=== PATIENT | male | born 1930 | race Caucasian/White ===

== ENCOUNTER 2016-09-23 10:24 | Inpatient (IN) | payer MEDICARE ==
[~2016-09-23] VITALS: Ht 172.7 cm; Wt 70.1 kg
[~2016-09-23 10:24] MED LIST: /TAMS4CA; /TAMS4CA GT; /TAMS4CA PO; ACET50TA PO; ALBU0.084 IN; ALBU0.084 INH; ALBU83IN; ALBUTEROL INH; ALEV220T26 AD; ASMANEX; ASPI81TA51 PO; ATROVENT; BABY81CH; COMBIN INH; DIFL200T; DOXY150C PO; DOXY75CA3 PO; HYPROMELLOSE OU; IPRA2IN INH; KLOR20TA PO; LASI40TA; LASI40TA PO; LEVO25TA4 PO; LEVOTHYROXINE PO; LISI5TAB; MAALOX PO; MICR10CA PO; MUCI600T34 PO; NEOM1SOL AD; PRED10PA PO; PRED10TA2 PO; PRED20TA PO; PRED50TA2 PO; PRED5TAB; PRED5TAB PO; PREDPOW10; PROV90AE; SENN8.6T63 PO; SENO8.6T9 PO; SIMV20TA2 PO; SIMV40TA2; SIMV40TA2 PO; SULF400T PO; TYLE325T5 PO; XOPE1.252; ZANT150T PO; ZOCO20TA PO; ZOCO40TA PO; maalox PO; ventolin INH
[2016-09-23 11:33] LABS: BASO # 0.1 K/mm3 (0.0-0.2); BASO % 0.6 % (0.0-1.0); EOS # 0.1 K/mm3 (0.0-0.50); EOS % 0.4 % (0.0-3.0); LARGE UNSTAINED CELL # 0.1 K/mm3 (0.0-0.4); LARGE UNSTAINED CELL % 0.5 % (0.0-4.0); LYMPH # 0.4 K/mm3 (1.5-4.5); MEAN CORPUSCULAR HEMOGLOBIN 31.7 pg (27.0-33.0); MEAN CORPUSCULAR HGB CONC 33.4 g/dl (32.0-36.5); MEAN CORPUSCULAR VOLUME 94.8 fl (80.0-96.0); MONO # 0.6 K/mm3 (0.0-0.8); MONO % 3.7 % (0.0-5.0); NEUTROPHILS # 15.3 K/mm3 (1.8-7.7); NEUTROPHILS % 92.7 % (36.0-66.0); PLATELET COUNT, AUTOMATED 148 k/mm3 (150-450); RED CELL DISTRIBUTION WIDTH 14.5 % (11.5-14.5); WHITE BLOOD COUNT 16.6 K/mm3 (4.0-10.0)
[2016-09-23 11:53] LABS: CALCIUM LEVEL 9.7 MG/DL (8.8-10.2); CREATININE FOR GFR 1.37 MG/DL (0.70-1.30); GLOMERULAR FILTRATION RATE 52.7 (>35); POTASSIUM SERUM 3.8 MEQ/L (3.5-5.1)
--- NOTE | 2016-09-23 11:55 | REP ---
CHEST, TWO VIEWS: HISTORY: Shortness of breath. COMPARISON: 04/09/2014. The lungs are hyperinflated. An increase in interstitial markings is present in the lungs consistent with chronic interstitial fibrosis. Linear densities are present in the left lower lobe consistent with atelectasis or scar. The heart is normal in size. The pulmonary vasculature is normal in appearance. The bony structure is intact. IMPRESSION: 1. Chronic interstitial fibrosis. 2. Left lower lobe atelectasis or scar. Signed by Ozzy Farley MD 09/23/2016 12:01 P
[2016-09-23] MEDS ORDERED: ACETAMINOPHEN 325 MG TAB As Ordered ONE (11:59)
[2016-09-23] MEDS ORDERED: methylPREDNISolone INJ 125 MG/2 ML VIAL (J2930) As Ordered ONE (11:59)
[2016-09-23] MEDS ORDERED: IPRATROPIUM 0.5MG/ALBUTEROL 2.5MG INH SOL UD 3ML (DUONEB)(J7620) As Ordered ONE (12:14)
[2016-09-23 12:40] LABS: ABG BASE EXCESS 0.8 (-2.0-2.0); ABG DEVICE NASAL CANN; ABG HCO3 24.3 MEQ/L (22.0-26.0); ABG STANDARD HCO3 25.2 MEQ/L (22.0-26.0); ABG TOTAL CO2 25.5 MEQ/L (23.0-31.0); ABG pH (ARTERIAL) 7.448 UNITS (7.350-7.450)
[2016-09-23] MEDS ORDERED: AZITHROMYCIN 500 MG, VIAL MATE ADAPTER 1 EACH in D5W 250 ML IV SCH (13:00)
[2016-09-23] MEDS ORDERED: AZITHROMYCIN INJ 500MG VIAL (J0456) As Ordered ONE (13:17)
[2016-09-23] MEDS ORDERED: cefTRIAXone SOD 1 GM VIAL (J0696) As Ordered ONE (13:17)
--- NOTE | 2016-09-23 13:22 | REP ---
Clinical: COPD and dyspnea. Findings: Diffuse moderate COPD and emphysematous changes are appreciated along with basilar bronchiectasis. Superimposed subtle acute left lower lobe alveolar infiltrate and trace right basilar atelectasis noted. No pleural effusion. No pneumothorax. No obvious significant adenopathy. Atherosclerotic changes to the thoracic aorta and coronary arteries noted without cardiomegaly or pericardial effusion. Musculoskeletal structures demonstrate age-related degenerative changes. Impression: Moderate COPD with early acute left lower lobe alveolar infiltrate and trace right basilar atelectasis. Signed by Ede Boykin MD 09/23/2016 01:14 P
[2016-09-23] MEDS ORDERED: IPRATROPIUM 0.5MG/ALBUTEROL 2.5MG INH SOL UD 3ML (DUONEB)(J7620) NEB PRN (13:30)
[2016-09-23] MEDS ORDERED: cefTRIAXone SOD 2 GM in D5W MINI-BAG PLUS 50 ML IV SCH (13:30)
[2016-09-23] MEDS ORDERED: SIMV20TA2 PO (13:33)
[2016-09-23] MEDS ORDERED: SENN8.6T10 PO (13:33)
[2016-09-23] MEDS ORDERED: ALB2.5NEB INH (13:33)
[2016-09-23] MEDS ORDERED: PRESCAP6 PO (13:33)
[2016-09-23] MEDS ORDERED: IPRAINH INH (13:33)
[2016-09-23] MEDS ORDERED: SYNT50TA PO (13:33)
[2016-09-23] MEDS ORDERED: FLOM5CAP PO (13:33)
[2016-09-23] MEDS ORDERED: VITA400T PO (13:33)
[2016-09-23] MEDS ORDERED: ALBU17IN INH (13:33)
[2016-09-23] MEDS ORDERED: IPRA2IN INH (13:33)
[2016-09-23] MEDS ORDERED: GUAI200T PO (13:33)
[2016-09-23] MEDS ORDERED: TEARSPF OU (13:33)
[2016-09-23] MEDS ORDERED: VIAG100T PO (13:33)
[2016-09-23] MEDS ORDERED: PRED10TA PO (13:33)
[2016-09-23] MEDS ORDERED: DOCU100C PO (13:34)
[2016-09-23] MEDS ORDERED: ASPI1TAB PO (13:34)
[2016-09-23] MEDS ORDERED: VITATAB73 PO (13:34)
[2016-09-23] MEDS ORDERED: IPRATROPIUM 0.5MG/ALBUTEROL 2.5MG INH SOL UD 3ML (DUONEB)(J7620) NEB SCH (14:00)
[2016-09-23] MEDS ORDERED: LEVALBUTEROL 1.25 MG/0.5 ML CONCENTRATE NEB INH PRN (16:00)
[2016-09-23] MEDS ORDERED: SIMV10TA2 PO (16:30)
[2016-09-23] MEDS ORDERED: TEARS NATURALE FREE OPHTH DROP VIAL OU PRN (17:00)
[2016-09-23] MEDS ORDERED: SENNA 8.6 MG TAB (SENOKOT) PO PRN (17:00)
[2016-09-23] MEDS ORDERED: IPRATROPIUM 0.02% SOLN 0.5MG/2.5 ML NEB INH PRN (17:00)
--- NOTE | 2016-09-23 17:15 | EDDOCDS ---
Physician Documentation [facility] Name: Tang Bonilla Age: 86 yrs Sex: Male : 1930 Arrival Date: 09/23/2016 Time: 10:24 Bed Admit Hold Private MD: MA Max [place] Disposition: 09/23 13:16 Critical Care: Critical care not applicable. pc Disposition: 09/23/16 15:47 Hospitalization ordered by Isabel Andrea for Inpatient Admission. Preliminary diagnosis are Bronchopneumonia, unspecified organism - LLL, Chronic obstructive pulmonary disease with acute lower respiratory infection. - Bed requested for 4 [place]. - Status is Inpatient Admission. [id number] - Condition is Stable. - Problem is new. - Symptoms have improved. HPI: 12:06 This 86 yrs old Male presents to ER via Walkin/Carried/Asstd with complaints pc of Breathing Difficulty. 12:06 The history is obtained from the patient. The patient presents with shortness of pc breath, with a prior history of COPD. The symptoms began gradually 8 days ago, He increased his prednisone to 30mg daily and tapered back down to his usual 10mg over 7 days. He felt well for 3-4 days but now feels just like he did last week. He denies any fevers or chills but has a low grade fever today in the ED.. There were no precipitating events that led to the current complaints. The patient has shortness of breath at rest, with light activity. At their worst, the symptoms were moderate. In the emergency department, the symptoms are mild. The patient's dyspnea was accompanied with cough, productive, of yellow sputum, heart racing. The patient has experienced similar episodes in the past, chronically. The patient has been recently seen by their primary care provider. Historical: - Allergies: Cipro PO; PENICILLINS; Levofloxacin (pulled achilles tendon apart); - Home Meds: 1. albuterol sulfate 90 mcg/actuation Inhl aepb 2 puffs every 4-6 hours 2. albuterol sulfate 2.5 mg /3 mL (0.083 %) Nebulizer nebu 4 times per day 3. cholecalciferol (vitamin D3) 400 u 3 tabs oral cap daily 4. ekldltx02/hypromellose 0.3% 1 drop both eyes bid 5. guaifenesin 200 mg Oral tab four times a day 6. ipratropium bromide 0.02 % inhalation soln 2.5 mL 3-4 times daily 7. ipratropium-albuterol 18-103 mcg/actuation Inhl aero 4 times per day 8. prednisone 10 mg Oral tab once daily 9. sildenafil 100 mg oral tab as needed 10. simvastatin 20 mg oral tab once daily 11. tamsulosin 0.4 mg oral cp24 once daily 12. aspirin 81 mg Oral tab once daily 13. docusate sodium 100 mg Oral cap 2 times per day 14. vitamin b complex cap mon-fri 15. olodaterol 2.5 mcg/actuation inhalation mist 2 puffs once daily 16. Oxygen 2 L continuous - PMHx: COPD; CHF; Hypercholesterolemia; Hypertension; BPH; - PSHx: Cataract Surgery; - The history from nurses notes was reviewed: and I agree with what is documented. - Social history: No barriers to communication noted, The patient speaks fluent Bengali, Smoking status: Patient states former smoker of tobacco. - Family history: Not pertinent. - : The pt / caregiver states he / she is not on anticoagulants. Home medication list is obtained from family members. - Hospitalizations: : No recent hospitalization is reported. - Exposure Risk Screening:: None identified. - Immunization history:: All immunizations up-to-date. - Social history:: the patient is a former smoker, the patient does not drink alcohol. ROS: 12:06 All systems are negative except as listed. The gastrointestinal and genitourinary pc components are also addressed in the HPI. Exam: 12:06 General Appearance: alert, the patient is in mild distress. pc 12:06 EENT: normal eye inspection, ears, nose and throat normal, pharynx normal, mucous membranes moist 12:06 Neck: normal inspection. 12:06 Respiratory: no respiratory distress, no pleuritic chest pain, speaks in full sentences, auscultation reveals wheezes, diffusely, decreased air entry noted throughout 12:06 Cardiovascular: normal heart rate, normal rhythm, no jugular venous distension appreciated, no murmurs, no gallop, no friction rub. 12:06 Abdomen: non-tender, non-distended, no organomegaly, no ascites. 12:06 Skin: normal color, warm, dry. 12:06 Extremities: non-tender, normal range of motion of all joints, no pedal edema. 12:06 Neuro: alert, oriented to person, place and time, cranial nerves normal as tested, no motor deficits, no sensory deficits. 12:06 Psych: normal mood. Vital Signs: 10:26 BP 149 / 67; Pulse 94; Resp 24; Temp 100.5(O); Pulse Ox 92% 4 lpm ; Weight 68.04 kg / cmb 150 lbs; Height 5 ft. 8 in. (172.72 cm); Pain 0/10; 11:42 BP 167 / 76 (auto/); js13 11:42 Pulse 88 MON; Resp 18; Pulse Ox 89% on 2 lpm NC; js13 11:57 BP 180 / 81 (auto/); js13 11:57 Pulse 88 MON; Resp 18; Pulse Ox 93% on 2 lpm NC; js13 12:12 BP 171 / 74 (auto/); js13 12:12 Pulse 84 MON; Resp 18; Pulse Ox 95% on 2 lpm NC; js13 12:27 BP 157 / 66 (auto/); js13 12:27 Pulse 88 MON; Resp 16; Pulse Ox 99% on 2 lpm NC; js13 12:42 BP 151 / 59 (auto/); js13 12:42 Pulse 86 MON; Resp 18; Pulse Ox 99% 2 lpm ; js13 12:57 BP 151 / 66 (auto/); js13 12:57 Pulse 90 MON; Resp 18; Pulse Ox 94% on 2 lpm NC; js13 13:12 BP 156 / 70 (auto/); js13 13:12 Pulse 93; Resp 20; Pulse Ox 95% on 2 lpm NC; js13 13:15 Temp 99.5(O); js13 13:27 BP 164 / 73 (auto/); js13 13:27 Pulse 94 MON; Resp 20; Pulse Ox 93% on 2 lpm NC; js13 13:42 BP 174 / 84 (auto/); js13 13:42 Pulse 86 MON; Resp 18; Pulse Ox 91% on 2 lpm NC; js13 13:57 BP 152 / 60 (auto/); js13 13:57 Pulse 90 MON; Resp 18; Pulse Ox 92% on 2 lpm NC; js13 14:12 BP 145 / 66 (auto/); js13 14:12 Pulse 90 MON; Resp 20; Pulse Ox 91% on 2 lpm NC; js13 14:27 BP 152 / 71 (auto/); js13 14:27 Pulse 86 MON; Resp 18; Pulse Ox 92% on 2 lpm NC; js13 14:42 BP 147 / 59 (auto/); js13 14:42 Pulse 88 MON; Resp 18; Pulse Ox 93% on 2 lpm NC; js13 14:57 BP 143 / 64 (auto/); js13 14:57 Pulse 86 MON; Resp 20; Pulse Ox 92% on 2 lpm NC; js13 15:12 BP 178 / 82 (auto/); js13 15:12 Pulse 88 MON; Resp 20; Pulse Ox 94% on 2 lpm NC; js13 15:27 BP 162 / 70 (auto/); js13 15:27 Pulse 90 MON; Resp 18; Pulse Ox 93% on 2 lpm NC; js13 15:42 BP 179 / 113 (auto/); js13 15:42 Pulse 90 MON; Resp 18; Pulse Ox 93% on 2 lpm NC; js13 15:57 BP 161 / 73 (auto/); js13 15:57 Pulse 86 MON; Resp 18; Pulse Ox 93% on 2 lpm NC; js13 16:12 BP 156 / 77 (auto/); js13 16:12 Pulse 88 MON; Resp 20; Temp 98.3(O); Pulse Ox 94% on 2 lpm NC; js13 10:26 Body Mass Index 22.81 (68.04 kg, 172.72 cm) cmb MDM: 11:09 -Blood Culture (Adults Only), peripheral from different site, or from device/port/PICC pc etc. if present ordered. 11:09 Tube Worker/Pulse Ox/q 15 min VS ordered. pc 11:09 IV Saline Lock ordered. pc 11:09 Rhythm Strip to chart ordered. pc 11:10 Basic Metabolic Profile Ordered. EDMS 11:10 CBC with Diff Ordered. EDMS 11:10 -Blood Culture Ordered. EDMS 11:11 Chest, 2 View (pa\E\lat) Ordered. EDMS 11:11 ECG WITH READING ER PHYS+CARDIAG ordered. EDMS 11:17 -Blood Culture (Adults Only), peripheral from different site, or from device/port/PICC deg etc. if present complete. 11:19 BLOOD CULTURES Ordered. EDMS 11:57 Solu-MEDROL 125 mg IVP once ordered. pc 11:57 Acetaminophen Tablet 650 mg PO once ordered. pc 11:58 Albuterol-Ipratropium 1 neb Nebulizer every 20 minutes x3 ordered. pc 11:58 Call Respiratory ordered. pc 11:58 Call Respiratory ordered. pc 11:58 Basic Metabolic Profile Reviewed. pc 11:58 CBC with Diff Reviewed. pc 11:59 Call Respiratory complete. js13 11:59 Call Respiratory complete. js13 11:59 -Arterial Blood Gas Ordered. EDMS 12:06 Differential diagnosis: Chronic Obstructive Pulmonary Disease pneumonia. Plan: labs, pc nebs, imaging, meds. 12:33 Test interpretation: EKG. pc 12:42 -Arterial Blood Gas Reviewed. pc 12:42 Chest, 2 View (pa\E\lat) Reviewed. pc 12:43 CT Chest Without Contrast Ordered. EDMS 13:15 cefTRIAXone 1 grams IVPB once over 30 mins; dilute in 50mL of NS or D5W ordered. pc 13:15 azithromycin 500 mg IVPB once over 1 hrs; dilute in 250mL of D5W or NS ordered. pc 13:15 BED REQUEST+ADM ordered. EDMS 13:16 Antibiotic administration: The patient will be admitted to a regular floor, and has pc been given the following antibiotics: Rocephin and Zithromax given. Data reviewed: old medical records, vital signs, nurses notes, EKG(s), lab test results, all radiology studies and available results. Test interpretation: LAB - all labs as ordered have been reviewed, interpreted and considered in the overall management of the clinical presentation; Arterial blood gas is normal except. pO2: 116 X-RAY - interpreted by Radiologist and personally reviewed, 2 view chest, COPD, LLL atectasis interpreted by Radiologist and personally reviewed, Chest CT; COPD, acute LLL infiltrate. The patient has been re-examined and re-evaluated. The patient's symptoms have mildly improved after treatment. Physician consultation: Dr. Isabel Andrea was contacted at 13:17, regarding admission, and will see patient in ED, shortly. Disposition: The historical points, examination findings, and any diagnostic results supporting the provided diagnosis, were discussed with the patient or legal guardian. The need for further work-up and/or treatment in the hospital was explained. 13:24 Admission / Observation Status ordered. EDMS 13:26 PHYSICAL THERAPY EVAL & TREAT ordered. EDMS 13:48 Financial registration complete. lg 13:56 ED course: After starting ABX, he has refused admission and requests to sign out AMA. pc Disposition: The historical points, examination findings, and any diagnostic results supporting the provided diagnosis, were discussed with the patient or legal guardian. The risks (severe disability/impairment and/or ) and benefits (continued evaluation/treatment of potentially life threatening illness) were explained in detail to the pt/parent/guardian. There is no evidence or suspicion of mental impairment due to drugs, alcohol, brain injury, stroke, dementia, mental delay or medical/psychiatric illness and the pt. is not a minor. The pt. demonstrates capacity/understanding: chose to sign out AMA. 14:03 CT Chest Without Contrast Reviewed. pc 14:09 [facility] Payment Agreement was scanned into [employer] and attached to record. lg 15:47 ED course: After discussing his case with the MA, he has decided to now stay for admission. Dr. Andrea has been renotified.. 15:51 Admission / Observation Status ordered. EDMS 15:51 LOW FAT LOW CHOLESTEROL DIET ordered. EDMS 15:52 LEGIONELLA ANTIGEN URINE Ordered. EDMS 15:52 URINE STREP PNEUMONIAE ANTIGEN Ordered. EDMS 15:52 INFLUENZA A&B RAPID ANTIGEN Ordered. EDMS 15:52 SPUTUM CULTURE AND GRAM STAIN Ordered. EDMS 15:52 MRSA SCREEN Ordered. EDMS 15:53 PHYSICAL THERAPY EVAL & TREAT ordered. EDMS 16:58 BRAIN NATIURETIC PEPTIDE Ordered. EDMS 16:59 ECHOCARD,DOPPLER/COLOR FLOW ordered. EDMS 17:10 THYROID STIMULATING HORMONE Ordered. EDMS EC:33 Rate is 87 beats/min. Rhythm is regular, Normal Sinus Rhythm. QRS [place] is Normal. AR pc interval is normal. QRS interval is shortened at 116 msec. QT interval is normal. No Q waves. T waves are Normal. ST Segment is depressed in leads II, aVF, V4, V5, V6, <1mm. Clinical impression: Normal Sinus Rhythm and Nonspecific ST-T changes. No change from previous ECG in October,. Administered Medications: 12:03 Drug: Solu-MEDROL 125 mg [Solu-Medrol 500 mg intravenous solution (125 mg)] Route: IVP; js13 Site: left antecubital; 12:03 Drug: Acetaminophen 650 mg [acetaminophen 325 mg tablet (2 tabs)] Route: PO; js13 13:15 Follow up: Temp 99.5 Oral; Response: Temperature is decreased js13 12:10 Drug: Albuterol-Ipratropium 1 neb [ipratropium-albuterol 0.5 mg-3 mg(2.5 mg base)/3 mL cs15 nebulization soln (1 neb)] Route: Nebulizer; 12:35 Drug: Albuterol-Ipratropium 1 neb [ipratropium-albuterol 0.5 mg-3 mg(2.5 mg base)/3 mL cs15 nebulization soln (1 neb)] Route: Nebulizer; 12:55 Drug: Albuterol-Ipratropium 1 neb [ipratropium-albuterol 0.5 mg-3 mg(2.5 mg base)/3 mL cs15 nebulization soln (1 neb)] Route: Nebulizer; 13:29 Drug: cefTRIAXone 1 grams [ceftriaxone 1 gram solution for injection] Route: IVPB; js13 Infused Over: 30 mins; Site: left antecubital; 14:43 Follow up: IV Status: Completed infusion; IV Intake: 50ml js13 13:49 Drug: azithromycin 500 mg [azithromycin 500 mg intravenous solution] Route: IVPB; js13 Infused Over: 1 hrs; Site: left antecubital; 16:31 Follow up: IV Status: Completed infusion; IV Intake: 250ml js13 Signatures: Dispatcher [employer] EDMS Yony Mcconnell MD MD pc Murray, Denise, [employer] [facility] deg Joselyn Lemus RN RN srm Garrett Brenner, Reg Reg Linh McelroyRN RN [email or web address] Patricia Acuña RN RN [id number] Brandy Keyes RN RN [facility] Corey Mehta RT [id number] The chart was reviewed and I authenticate all verbal orders and agree with the evaluation and treatment provided.Corrections: (The following items were deleted from the chart) 11:31 10:48 Home Meds: hydrochlorothiazide 25 mg Oral tab once daily; 4 srm 11:31 10:48 Home Meds: levofloxacin 500 mg Oral tab once daily; 4 srm 11:31 10:48 Home Meds: levothyroxine 50 mcg Oral cap once daily; 4 srm 11:38 11:31 Allergies: Levofloxacin (made legs swell); srm srm 11:49 10:48 Home Meds: doxycycline hyclate 100 mg Oral cap every 12 hours; 4 js13 13:32 13:24 LOW FAT LOW CHOLESTEROL DIET ordered. EDMS EDMS 13:32 13:25 LEGIONELLA ANTIGEN URINE ordered. EDMS EDMS 13:32 13:25 URINE STREP PNEUMONIAE ANTIGEN ordered. EDMS EDMS 13:33 13:25 BASIC METABOLIC PROFILE ordered. EDMS EDMS 13:33 13:25 SPUTUM CULTURE AND GRAM STAIN ordered. EDMS EDMS 17:12 17:00 THYROID STIMULATING HORMONE ordered. EDMS EDMS Attachments: 14:09 [facility]
--- NOTE | 2016-09-23 17:15 | EDDOCDS ---
Nurse's Notes [facility] Name: Tang Bonilla Age: 86 yrs Sex: Male : 1930 Arrival Date: 09/23/2016 Time: 10:24 Bed Admit Hold Private MD: [place] Max [place] Diagnosis: Bronchopneumonia, unspecified organism-LLL;Chronic obstructive pulmonary disease with acute lower respiratory infection Presentation: 09/23 10:34 Presenting complaint: Patient states: copd history has had worsening symptoms for 2 mk4 weeks. Adult Sepsis Screening: The patient does not have new or worsening altered mentation. Patient has a respiratory rate of greater than or equal to 22 (1 point). Systolic blood pressure is greater than 100. Patient has a qSOFA score of 1- Negative Sepsis Screen. Suicide/Homicide risk assessment- the patient denies having any suicidal and/or homicidal ideations and does not present with any other emotional, behavioral or mental health complaints. 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 Transition of care: patient was not received from another setting of care. 10:34 Acuity: TENZIN Level 3 4 10:34 Method Of Arrival: Walkin/Carried/Asstd 4 10:34 Red Flag criteria, patient assessed and taken directly to a bed. 4 Triage Assessment: 10:36 General: Appears distressed. Respiratory: Onset: The symptoms/episode began/occurred 2 mk4 weeks , Airway is patent Respiratory effort is labored, Respiratory pattern is tachypnea. Historical: - Allergies: Cipro PO; PENICILLINS; Levofloxacin (pulled achilles tendon apart); - Home Meds: 1. albuterol sulfate 90 mcg/actuation Inhl aepb 2 puffs every 4-6 hours 2. albuterol sulfate 2.5 mg /3 mL (0.083 %) Nebulizer nebu 4 times per day 3. cholecalciferol (vitamin D3) 400 u 3 tabs oral cap daily 4. kqsuerr52/hypromellose 0.3% 1 drop both eyes bid 5. guaifenesin 200 mg Oral tab four times a day 6. ipratropium bromide 0.02 % inhalation soln 2.5 mL 3-4 times daily 7. ipratropium-albuterol 18-103 mcg/actuation Inhl aero 4 times per day 8. prednisone 10 mg Oral tab once daily 9. sildenafil 100 mg oral tab as needed 10. simvastatin 20 mg oral tab once daily 11. tamsulosin 0.4 mg oral cp24 once daily 12. aspirin 81 mg Oral tab once daily 13. docusate sodium 100 mg Oral cap 2 times per day 14. vitamin b complex cap mon-fri 15. olodaterol 2.5 mcg/actuation inhalation mist 2 puffs once daily 16. Oxygen 2 L continuous - PMHx: COPD; CHF; Hypercholesterolemia; Hypertension; BPH; - PSHx: Cataract Surgery; - The history from nurses notes was reviewed: and I agree with what is documented. - Social history: No barriers to communication noted, The patient speaks fluent Hebrew, Smoking status: Patient states former smoker of tobacco. - Family history: Not pertinent. - : The pt / caregiver states he / she is not on anticoagulants. Home medication list is obtained from family members. - Hospitalizations: : No recent hospitalization is reported. - Exposure Risk Screening:: None identified. - Immunization history:: All immunizations up-to-date. - Social history:: the patient is a former smoker, the patient does not drink alcohol. Screenin:30 Screening information is obtained from the patient. Fall risk: At risk due to age. js13 Assistance ADL's: requires no assistance with activities of daily living. Abuse/DV Screen: The patient / caregiver reports he/she is: not in a situation that causes fear, pain or injury. Nutritional screening: No deficits noted. Advance Directives: There is no active DNR order. home support is adequate. Assessment: 11:40 General: Appears in no apparent distress, Behavior is appropriate for age, cooperative. js13 Neurological: Level of Consciousness is awake, alert. Cardiovascular: Rhythm is regular Chest pain is denied. Respiratory: Airway is patent Respiratory effort is even, unlabored, Respiratory pattern is regular, Breath sounds with rhonchi Breath sounds are diminished Reports cough that is productive. Derm: Skin is pink, warm & dry. 11:40 Pain: Denies pain. js13 12:39 General: Appears in no apparent distress, Behavior is appropriate for age, cooperative. js13 Pain: Denies pain. Neurological: Level of Consciousness is awake, alert. Cardiovascular: Rhythm is sinus rhythm Chest pain is denied. Respiratory: Airway is patent Respiratory effort is even, unlabored, Respiratory pattern is regular, symmetrical, Breath sounds are diminished. Derm: Skin is pink, warm & dry. 13:40 Adult Sepsis Screening: The patient does not have new or worsening altered mentation. js13 Patient's respiratory rate is less than 22. Systolic blood pressure is greater than 100. Patient has a qSOFA score of 0- Negative Sepsis Screen. 14:45 General: Appears in no apparent distress, Behavior is appropriate for age, cooperative. js13 Pain: Denies pain. Neurological: Level of Consciousness is awake, alert. Cardiovascular: Rhythm is sinus rhythm Chest pain is denied. Respiratory: Airway is patent Respiratory effort is even, unlabored, Respiratory pattern is regular, symmetrical, Breath sounds are diminished. Derm: Skin is pink, warm & dry. 15:50 General: Appears in no apparent distress, Behavior is appropriate for age, cooperative. js13 Pain: Denies pain. Neurological: Level of Consciousness is awake, alert. Cardiovascular: Rhythm is sinus rhythm Chest pain is denied. Respiratory: Airway is patent Respiratory effort is even, unlabored, Respiratory pattern is regular, symmetrical, Breath sounds are diminished. Derm: Skin is pink, warm & dry. 16:26 General: Appears in no apparent distress, Behavior is appropriate for age, cooperative. js13 Pain: Denies pain. Neurological: Level of Consciousness is awake, alert. Cardiovascular: Rhythm is sinus rhythm Chest pain is denied. Respiratory: Airway is patent Respiratory effort is even, unlabored, Respiratory pattern is regular, symmetrical, Breath sounds are diminished. Derm: Skin is pink, warm & dry. Social Work Consult: 14:41 LWBS/AMA AMA: Patient is refusing further stabilizing treatment at [facility], although rb offered treatment regardless of method of payment or ability to pay. Patient is aware that this action is being undertaken against the advice of the medical staff at [facility]. Pt. has capacity to understand the potential consequences of this choice. pt did notify ED staff. Patient / guardian did sign Refusal of Services form. Pt left before being seen by PSA. Vital Signs: 10:26 BP 149 / 67; Pulse 94; Resp 24; Temp 100.5(O); Pulse Ox 92% 4 lpm ; Weight 68.04 kg; cmb Height 5 ft. 8 in. (172.72 cm); Pain 0/10; 11:42 BP 167 / 76 (auto/); js13 11:42 Pulse 88 MON; Resp 18; Pulse Ox 89% on 2 lpm NC; js13 11:57 BP 180 / 81 (auto/); js13 11:57 Pulse 88 MON; Resp 18; Pulse Ox 93% on 2 lpm NC; js13 12:12 BP 171 / 74 (auto/); js13 12:12 Pulse 84 MON; Resp 18; Pulse Ox 95% on 2 lpm NC; js13 12:27 BP 157 / 66 (auto/); js13 12:27 Pulse 88 MON; Resp 16; Pulse Ox 99% on 2 lpm NC; js13 12:42 BP 151 / 59 (auto/); js13 12:42 Pulse 86 MON; Resp 18; Pulse Ox 99% 2 lpm ; js13 12:57 BP 151 / 66 (auto/); js13 12:57 Pulse 90 MON; Resp 18; Pulse Ox 94% on 2 lpm NC; js13 13:12 BP 156 / 70 (auto/); js13 13:12 Pulse 93; Resp 20; Pulse Ox 95% on 2 lpm NC; js13 13:15 Temp 99.5(O); js13 13:27 BP 164 / 73 (auto/); js13 13:27 Pulse 94 MON; Resp 20; Pulse Ox 93% on 2 lpm NC; js13 13:42 BP 174 / 84 (auto/); js13 13:42 Pulse 86 MON; Resp 18; Pulse Ox 91% on 2 lpm NC; js13 13:57 BP 152 / 60 (auto/); js13 13:57 Pulse 90 MON; Resp 18; Pulse Ox 92% on 2 lpm NC; js13 14:12 BP 145 / 66 (auto/); js13 14:12 Pulse 90 MON; Resp 20; Pulse Ox 91% on 2 lpm NC; js13 14:27 BP 152 / 71 (auto/); js13 14:27 Pulse 86 MON; Resp 18; Pulse Ox 92% on 2 lpm NC; js13 14:42 BP 147 / 59 (auto/); js13 14:42 Pulse 88 MON; Resp 18; Pulse Ox 93% on 2 lpm NC; js13 14:57 BP 143 / 64 (auto/); js13 14:57 Pulse 86 MON; Resp 20; Pulse Ox 92% on 2 lpm NC; js13 15:12 BP 178 / 82 (auto/); js13 15:12 Pulse 88 MON; Resp 20; Pulse Ox 94% on 2 lpm NC; js13 15:27 BP 162 / 70 (auto/); js13 15:27 Pulse 90 MON; Resp 18; Pulse Ox 93% on 2 lpm NC; js13 15:42 BP 179 / 113 (auto/); js13 15:42 Pulse 90 MON; Resp 18; Pulse Ox 93% on 2 lpm NC; js13 15:57 BP 161 / 73 (auto/); js13 15:57 Pulse 86 MON; Resp 18; Pulse Ox 93% on 2 lpm NC; js13 16:12 BP 156 / 77 (auto/); js13 16:12 Pulse 88 MON; Resp 20; Temp 98.3(O); Pulse Ox 94% on 2 lpm NC; js13 10:26 Body Mass Index 22.81 (68.04 kg, 172.72 cm) cmb Vitals: 10:26 Log In Time: September 23, 2016 at 10:24. RN notified that patient meets Red Flag cmb criteria. ED Course: 10:26 Patient visited by Jaz David. cmb 10:26 [facility] is Private Physician. cmb 10:26 Patient moved to Waiting cmb 10:29 Linh Ponce,RN is Primary Nurse. mk4 10:29 Patient moved to 18 mk4 10:35 Triage Initiated mk4 10:56 Patient visited by Patricia Acuña RN. mk4 10:59 Yony Mcconnell MD is Attending Physician. pc 11:25 EKG done. (by ED staff). Reviewed by Yony Mcconnell MD. ls3 11:25 O2 via nasal cannula \T\ 2L/min. js13 11:26 Patient visited by Geovanna Devlin PCA. ls3 11:29 BLOOD CULTURES Sent. srm 11:29 -Blood Culture Sent. srm 11:29 Basic Metabolic Profile Sent. srm 11:29 CBC with Diff Sent. srm 11:30 Inserted saline lock: 20 gauge in left antecubital area and blood collected. srm 11:57 Patient visited by Yony Mcconnell MD. pc 12:21 Chest, 2 View (pa\E\lat) Returned. EDMS 12:29 -Arterial Blood Gas Sent. cs15 12:40 Patient visited by Linh Ponce RN. js13 13:18 Isabel Andrea is Hospitalizing Provider. pc 13:45 CT Chest Without Contrast Returned. EDMS 13:59 [facility] [place] is Referral Physician. pc 14:09 Patient name changed from Tang\S\\S\Bonilla\S\ to Tang\S\ \S\Bonilla. EDMS 14:09 [facility] Payment Agreement was scanned into [employer] and attached to record. lg 14:46 Patient visited by Linh Ponce RN. js13 15:47 Isabel Andrea is Hospitalizing Provider. pc 15:51 Patient moved to Admit Hold js13 16:30 The patient / caregiver is instructed regarding the plan of care and ED course. Cardiac js13 monitor on. Pulse ox on. NIBP on. 16:30 No procedures done that require assistance. js13 Administered Medications: 12:03 Drug: Solu-MEDROL 125 mg [Solu-Medrol 500 mg intravenous solution (125 mg)] Route: IVP; js13 Site: left antecubital; 12:03 Drug: Acetaminophen 650 mg [acetaminophen 325 mg tablet (2 tabs)] Route: PO; js13 13:15 Follow up: Temp 99.5 Oral; Response: Temperature is decreased js13 12:10 Drug: Albuterol-Ipratropium 1 neb [ipratropium-albuterol 0.5 mg-3 mg(2.5 mg base)/3 mL cs15 nebulization soln (1 neb)] Route: Nebulizer; 12:35 Drug: Albuterol-Ipratropium 1 neb [ipratropium-albuterol 0.5 mg-3 mg(2.5 mg base)/3 mL cs15 nebulization soln (1 neb)] Route: Nebulizer; 12:55 Drug: Albuterol-Ipratropium 1 neb [ipratropium-albuterol 0.5 mg-3 mg(2.5 mg base)/3 mL cs15 nebulization soln (1 neb)] Route: Nebulizer; 13:29 Drug: cefTRIAXone 1 grams [ceftriaxone 1 gram solution for injection] Route: IVPB; js13 Infused Over: 30 mins; Site: left antecubital; 14:43 Follow up: IV Status: Completed infusion; IV Intake: 50ml js13 13:49 Drug: azithromycin 500 mg [azithromycin 500 mg intravenous solution] Route: IVPB; js13 Infused Over: 1 hrs; Site: left antecubital; 16:31 Follow up: IV Status: Completed infusion; IV Intake: 250ml js13 Intake: 14:43 IV: 50.00ml; Total: 50.00ml. js13 16:31 IV: 250.00ml; Total: 300.00ml. js13 RT: 12:30 ABG's drawn from right radial artery allens test done and positive pressure held for 5 cs15 minutes no bleeding noted pressure bandage applied specimen sent pt. tolerated well. Initial Med Neb Given as ordered. Respiratory: Respiratory effort is labored, Respiratory pattern is regular Breath sounds are clear bilaterally. 12:34 O2 via nasal cannula \T\ 2L/min. cs15 12:35 Respiratory: Breath sounds are clear bilaterally. cs15 Order Results: Lab Order: Basic Metabolic Profile; [facility] 09/23/16 11:26 Test: GLUCOSE, FASTING; Value: 128; Range: 83-110; Abnormal: Above high normal; Units: MG/DL; Status: F Test: BLOOD UREA NITROGEN; Value: 30; Range: 7-18; Abnormal: Above high normal; Units: MG/DL; Status: F Test: CREATININE FOR GFR; Value: 1.37; Range: 0.70-1.30; Abnormal: Above high normal; Units: MG/DL; Status: F Test: GLOMERULAR FILTRATION RATE; Value: 52.7; Range: >35; Status: F Test: SODIUM LEVEL; Value: 137; Range: 136-145; Units: MEQ/L; Status: F Test: POTASSIUM SERUM; Value: 3.8; Range: 3.5-5.1; Units: MEQ/L; Status: F Test: CHLORIDE LEVEL; Value: 99; Range: 98-107; Units: MEQ/L; Status: F Test: CARBON DIOXIDE LEVEL; Value: 30; Range: 21-32; Units: MEQ/L; Status: F Test: ANION GAP; Value: 8; Range: 8-16; Units: MEQ/L; Status: F Test: CALCIUM LEVEL; Value: 9.7; Range: 8.8-10.2; Units: MG/DL; Status: F Test Note: ; Units are mL/min/1.73 m2 Chronic Kidney Disease Staging per NKF: Stage I & II GFR >=60 Normal to Mildly Decreased Stage III GFR 30-59 Moderately Decreased Stage IV GFR 15-29 Severely Decreased Stage V GFR <15 Very Little GFR Left ESRD GFR <15 on BREAKFAST SERVER Lab Order: CBC with Diff; SPEC'M 09/23/16 11:26 Test: WHITE BLOOD COUNT; Value: 16.6; Range: 4.0-10.0; Abnormal: Above high normal; Units: K/mm3; Status: F Test: RED BLOOD COUNT; Value: 4.88; Range: 4.30-6.10; Units: M/mm3; Status: F Test: HEMOGLOBIN; Value: 15.5; Range: 14.0-18.0; Units: g/dl; Status: F Test: HEMATOCRIT; Value: 46.2; Range: 42.0-52.0; Units: %; Status: F Test: MEAN CORPUSCULAR VOLUME; Value: 94.8; Range: 80.0-96.0; Units: fl; Status: F Test: MEAN CORPUSCULAR HEMOGLOBIN; Value: 31.7; Range: 27.0-33.0; Units: pg; Status: F Test: MEAN CORPUSCULAR HGB CONC; Value: 33.4; Range: 32.0-36.5; Units: g/dl; Status: F Test: RED CELL DISTRIBUTION WIDTH; Value: 14.5; Range: 11.5-14.5; Units: %; Status: F Test: PLATELET COUNT, AUTOMATED; Value: 148; Range: 150-450; Abnormal: Below low normal; Units: k/mm3; Status: F Test: NEUTROPHILS %; Value: 92.7; Range: 36.0-66.0; Abnormal: Above high normal; Units: %; Status: F Test: LYMPH %; Value: 2.0; Range: 24.0-44.0; Abnormal: Below low normal; Units: %; Status: F Test: MONO %; Value: 3.7; Range: 0.0-5.0; Units: %; Status: F Test: EOS %; Value: 0.4; Range: 0.0-3.0; Units: %; Status: F Test: BASO %; Value: 0.6; Range: 0.0-1.0; Units: %; Status: F Test: LARGE UNSTAINED CELL %; Value: 0.5; Range: 0.0-4.0; Units: %; Status: F Test: NEUTROPHILS #; Value: 15.3; Range: 1.8-7.7; Abnormal: Above high normal; Units: K/mm3; Status: F Test: LYMPH #; Value: 0.4; Range: 1.5-4.5; Abnormal: Below low normal; Units: K/mm3; Status: F Test: MONO #; Value: 0.6; Range: 0.0-0.8; Units: K/mm3; Status: F Test: EOS #; Value: 0.1; Range: 0.0-0.50; Units: K/mm3; Status: F Test: BASO #; Value: 0.1; Range: 0.0-0.2; Units: K/mm3; Status: F Test: LARGE UNSTAINED CELL #; Value: 0.1; Range: 0.0-0.4; Units: K/mm3; Status: F Lab Order: -Arterial Blood Gas; SPEC'M 09/23/16 12:28 Test: ABG pH (ARTERIAL); Value: 7.448; Range: 7.350-7.450; Units: UNITS; Status: F Test: ABG PARTIAL PRESSURE CO2; Value: 36.0; Range: 35.0-45.0; Units: mmHg; Status: F Test: ABG PARTIAL PRESSURE O2; Value: 116.0; Range: 75.0-100.0; Abnormal: Above high normal; Units: mmHg; Status: F Test: ABG TOTAL CO2; Value: 25.5; Range: 23.0-31.0; Units: MEQ/L; Status: F Test: ABG HCO3; Value: 24.3; Range: 22.0-26.0; Units: MEQ/L; Status: F Test: ABG BASE EXCESS; Value: 0.8; Range: -2.0-2.0; Status: F Test: ABG STANDARD HCO3; Value: 25.2; Range: 22.0-26.0; Units: MEQ/L; Status: F Test: ABG O2 SATURATION; Value: 98.5; Range: 95.0-99.0; Units: %; Status: F Test: ABG DEVICE; Value: NASAL ASHLEY; Status: F Lab Order: THYROID STIMULATING HORMONE; SPEC'M 09/23/16 11:26 Test: THYROID STIMULATING HORMONE; Range: 0.358-3.740; Units: uIU/ML; Status: I Radiology Order: Chest, 2 View (pa\E\lat) Test: Chest, 2 View (pa\E\lat) REASON FOR EXAMINATION: Shortness of Breath; CHEST, TWO VIEWS:; ; HISTORY: Shortness of breath.; ; COMPARISON: 04/09/2014.; ; The lungs are hyperinflated. An increase in interstitial markings is present in; the lungs consistent with chronic interstitial fibrosis. Linear densities are; present in the left lower lobe consistent with atelectasis or scar. The heart is; normal in size. The pulmonary vasculature is normal in appearance. The bony; structure is intact.; ; IMPRESSION:; ; 1. Chronic interstitial fibrosis.; ; 2. Left lower lobe atelectasis or scar.; ; ; Signed by; Ozzy Farley MD 09/23/2016 12:01 P; Radiology Order: CT Chest Without Contrast Test: CT Chest Without Contrast REASON FOR EXAMINATION: COPD, dyspnea; Clinical: COPD and dyspnea.; ; Findings:; Diffuse moderate COPD and emphysematous changes are appreciated along with; basilar bronchiectasis. Superimposed subtle acute left lower lobe alveolar; infiltrate and trace right basilar atelectasis noted. No pleural effusion. No; pneumothorax. No obvious significant adenopathy. Atherosclerotic changes to the; thoracic aorta and coronary arteries noted without cardiomegaly or pericardial; effusion. Musculoskeletal structures demonstrate age-related degenerative; changes.; ; Impression:; Moderate COPD with early acute left lower lobe alveolar infiltrate and trace; right basilar atelectasis.; ; ; Signed by; Ede Boykin MD 09/23/2016 01:14 P; Outcome: 13:18 Decision to Hospitalize by Provider. pc 14:00 Patient left against medical advice. pc 15:47 Decision to Hospitalize by Provider. pc 16:32 Discharge Assessment: Patient awake, alert and oriented x 3. No cognitive and/or js13 functional deficits noted. Patient verbalized understanding of disposition instructions. patient administered narcotics - no. The following High Risk Discharge criteria are identified: None. Admitted to Med/Surg accompanied by tech, family with patient, via stretcher, with oxygen, with chart. Condition: stable. CT Study completed. Admission hand-off: Report Faxed. Property :Personal belongings accompany Pt. 17:14 Patient left the ED. js13 Signatures: Dispatcher [employer] EDMS Yony Mcconnell MD MD pc Michelson, Staci, RN RN srm Oneil, Rashmi, PSA PSA rb Garrett Brenner, Reg Reg lg Linh Ponce,RN RN js13 Jaz David Margaret RN RN mk4 Geovanna Devlin, SHELVER SHELVER ls3 Corey Mehta,RT RT cs15 Corrections: (The following items were deleted from the chart) 11:31 10:48 Home Meds: hydrochlorothiazide 25 mg Oral tab once daily; [facility] srm 11:31 10:48 Home Meds: levofloxacin 500 mg Oral tab once daily; [facility] srm 11:31 10:48 Home Meds: levothyroxine 50 mcg Oral cap once daily; [facility] srm 11:38 11:31 Allergies: Levofloxacin (made legs swell); srm srm 11:49 10:48 Home Meds: doxycycline hyclate 100 mg Oral cap every 12 hours; 4 js13 MTDD
[2016-09-23 17:20] VITALS: BP 162/84
[2016-09-23] MEDS: LACTOBACILLUS ACIDOPHILUS CAP (BACID) PO SCH (18:01)
[2016-09-23] MEDS: TAMSULOSIN 0.4 MG CAP PO SCH (18:01)
[2016-09-23] MEDS: LEVALBUTEROL 1.25 MG/0.5 ML CONCENTRATE NEB INH SCH ×2 (19:45→22:58)
[2016-09-23] MEDS: DOCUSATE SODIUM 100 MG CAP PO SCH (20:40)
[2016-09-23] MEDS: SIMVASTATIN 10 MG TAB PO SCH (20:40)
[2016-09-23] MEDS: guaiFENesin ER 600 MG TAB PO SCH (20:40)
[2016-09-23 20:45] VITALS: BP 180/72
[2016-09-23] MEDS ORDERED: guaiFENesin ER 600 MG TAB PO SCH (21:00)
[2016-09-23] MEDS: HEPARIN SOD (PORCINE) 5000 UNITS/ML VIAL SQ SCH (22:06)
--- NOTE | 2016-09-23 22:25 | HPE ---
DATE OF ADMISSION: 09/23/2016 PRIMARY CARE PHYSICIAN: [facility] in [place] CHIEF COMPLAINT: Shortness of breath. HISTORY OF PRESENT ILLNESS: 86-year-old male with history of chronic obstructive pulmonary disease (COPD), congestive heart failure (CHF), hypercholesterolemia, benign prostatic hypertrophy (BPH) and hypertension on chronic 2 liters of oxygen at home. Follows with a senior dentist at the [facility] in [place], presents to the emergency room with two week history of worsening shortness of breath. At baseline, the patient is able to ambulate 100 to 150 feet with his walker. When he goes to the [place] from the parking lot into the [facility], he usually has no issues. He now complains of increasing nonproductive cough, worsening shortness of breath and able to ambulate 10 feet without difficulty. He has been using his nebulizers every 3 hourly without much relief. He was seen by his primary care physician and was placed on a 7-day course of antibiotics and tapering dose of prednisone. Despite completing his antibiotics and prednisone taper, the patient continues to have significant difficulty breathing. In the emergency room, chest x-ray showed possible left lower lobe infiltrate, low- grade temperature of 100.5, elevated white count 16.6. Hospitalist service was called for admission for a left lower lobe pneumonia and chronic obstructive pulmonary disease (COPD) exacerbation. The patient also exhibit acute kidney injury with creatine of 1.37. Previous creatine of 1.2. PAST MEDICAL HISTORY: Chronic obstructive pulmonary disease (COPD), chronic hypoxic respiratory failure on 2 liters of home oxygen, hypertension, hyperlipidemia, chronic steroid use, benign prostatic hypertrophy (BPH), congestive heart failure (CHF), diastolic dysfunction. PAST SURGICAL HISTORY: Bilateral cataracts. Tube placement in the right ear. Cyst removed from his back. Hemorrhoid surgery. Tonsillectomy as a child. ALLERGIES: LEVAQUIN causing tender <<2:30>> . PENICILLIN causing itching and swelling. CIPRO causing swelling. HOME MEDICATIONS: - albuterol sulfate 2 puffs every 4 to 6 hours nebulizer treatments four times daily - vitamin D3 three tabs daily - dextran hypromellose one drop both eyes twice a day - guaifenesin 200 mg four times daily - ipratropium 2.5 mL three to four times daily - Combivent 4 times daily - prednisone 10 mg daily - sildenafil 100 mg as needed - simvastatin 20 mg daily - tamsulosin 0.4 mg daily - aspirin 81 mg daily - Colace 100 mg twice a day - vitamin B complex Tuesday to Tuesday - olodaterol 2.5 mcg mist two puffs daily - 2 liters continuous oxygen SOCIAL HISTORY: Quit smoking 11 years ago. Denies alcohol use. 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 Lives with his . REVIEW OF SYSTEMS: 12-point system obtained, all of which were negative aside from history of present illness positive findings. PHYSICAL EXAMINATION: Blood pressure 149/67, pulse 94, respiratory rate 24, temperature of 100.5, 92% on 4 liters of oxygen. 68.04 kilograms. 5 feet, 8 inches all. GENERAL: The patient is in mild distress. Unable to speak in full sentences. Four to five word dyspnea. 100.5 temperature. No jugular venous distension. Pupils round and reactive. Decreased air entry and rhonchus breath sounds bilaterally. HEART: S1 and S2. Sinus rhythm. No murmurs, rubs or gallops. ABDOMEN: Soft, nontender, nondistended. Positive bowel sounds in all four quadrants. No hepatosplenomegaly. EXTREMITIES: No cyanosis, no pitting edema. NEUROLOGICAL: The patient is awake, alert, oriented times three. Able to provide history with mild distress. No use of respiratory accessory muscles. 5/5 motor function times four extremities. No sensory disturbance. ELECTROCARDIOGRAM (EKG): Sinus rhythm. Ventricular rate is 87, short IA interval of 116 milliseconds, QRS of 88, QT 350, QTc 395. LABORATORY DATA: White count 6.6, hemoglobin 16, hematocrit 46, platelet count 148, 92% neutrophils. Arterial blood gas: pH of 7.44, HCO2 36, O2 116. Sodium 137, potassium 3.8, chloride 99, bicarbonate 30, BUN 30, creatine 1.37, baseline of 1.2, glucose of 128, calcium of 9.7. Two sets of blood cultures are pending. Chest CT 09/23/2016: Moderate chronic obstructive pulmonary disease (COPD) with acute left lower lobe infiltrate and trace right basilar atelectasis. ASSESSMENT AND PLAN: This is an 86-year-old male with history of chronic hypoxic respiratory failure on 2 liters of oxygen, chronic obstructive pulmonary disease (COPD), prior history of pneumonia, chronic obstructive pulmonary disease (COPD) exacerbation requiring hospitalization, congestive heart failure (CHF), diastolic dysfunction, hypercholesteremia, hypertension, benign prostatic hypertrophy (BPH), cataract surgery, hypothyroidism, presents to the emergency room with two week history of worsening shortness of breath and found to have chronic obstructive pulmonary disease (COPD) exacerbation, left lower lobe pneumonia. The patient will be admitted as an inpatient for two midnights to a hospital service of Dr. You Cabezas for the following issues. 1. Acute on chronic hypoxic respiratory failure secondary to left lower lobe pneumonia and chronic obstructive pulmonary disease (COPD) exacerbation. The patient will be treated with antibiotics, nebulizer treatment, supplemental oxygen and keep saturation in the 80s to 92%. Nebulizer treatments routinely and as needed and Solu-Medrol. Monitor for clinical improvement. 2. Acute left lower pneumonia. Appears to be community acquired. Therefore, the patient had been safely treated with ceftriaxone during the previous admission with no significant adverse affects, therefore, will continue with ceftriaxone despite the penicillin allergy and azithromycin. Will obtain sputum culture if possible for symptomatic relief. Will give Mucinex nebulizer treatments, supplemental oxygen will be kept for saturations 80s to 92%. 3. Acute chronic obstructive pulmonary disease (COPD) exacerbation, most likely secondary to acute infection bacterial pneumonia. The patient will be given IV Solu-Medrol every 12 hourly, nebulizer treatment, supplemental oxygen, monitor for clinical improvement. 4. History of diastolic heart failure. No documented echocardiogram recently. Therefore will obtain an echocardiogram. Will monitor input and output, daily weights. Adjust Lasix accordingly if it appears to be decompensated. 5. Acute kidney injury. Avoid nephrotoxins. Renally dose all medications. The patient currently does not have Lasix on board. Chest x-ray appears to be compensated with no signs of pulmonary edema. 6. Prior history of hypothyroidism. Currently on no supplement. Will check a thyroid simulating hormone (TSH) level as an add on test. 7. Hypercholesterolemia. Check lipid profile in the morning. Continue Simvastatin. Hypertension appears to be controlled on no medications. 8. Pulmonary hypertension. Repeat echocardiogram. Continue with supplemental oxygen. 9. Benign prostatic hypertrophy (BPH), stable. Continue on tamsulosin. 10. Deep vein thrombosis (DVT) prophylaxis with heparin subcutaneous. The patient will be assigned to Dr. You Cabezas at 10 p.m. 09/23/2016, who will assume care of this patient 09/24/2016at 7 a.m. [facility]
[2016-09-23] MEDS: methylPREDNISolone INJ 125 MG/2 ML VIAL (J2930) IV SCH (22:52)
[2016-09-24] MEDS: cefTRIAXone SOD 2 GM in D5W MINI-BAG PLUS 50 ML IV SCH (01:08)
[2016-09-24] MEDS: LEVALBUTEROL 1.25 MG/0.5 ML CONCENTRATE NEB INH SCH ×5 (03:04→20:22)
[2016-09-24 03:05] VITALS: O2SAT 92
[2016-09-24 05:05] VITALS: BP 166/78
[2016-09-24 05:48] LABS: EOS % 0.3 % (0.0-3.0); LARGE UNSTAINED CELL # 0.1 K/mm3 (0.0-0.4); LARGE UNSTAINED CELL % 0.6 % (0.0-4.0); LYMPH # 0.3 K/mm3 (1.5-4.5); LYMPH % 3.2 % (24.0-44.0); MEAN CORPUSCULAR HGB CONC 33.9 g/dl (32.0-36.5); MEAN CORPUSCULAR VOLUME 94.4 fl (80.0-96.0); MONO # 0.4 K/mm3 (0.0-0.8); MONO % 3.6 % (0.0-5.0); NEUTROPHILS # 9.6 K/mm3 (1.8-7.7); NEUTROPHILS % 92.3 % (36.0-66.0); PLATELET COUNT, AUTOMATED 119 k/mm3 (150-450); RED CELL DISTRIBUTION WIDTH 13.5 % (11.5-14.5); WHITE BLOOD COUNT 10.4 K/mm3 (4.0-10.0)
[2016-09-24 06:07] LABS: ANION GAP 10 MEQ/L (8-16); BLOOD UREA NITROGEN 27 MG/DL (7-18); CALCIUM LEVEL 9.7 MG/DL (8.8-10.2); CARBON DIOXIDE LEVEL 30 MEQ/L (21-32); CHLORIDE LEVEL 101 MEQ/L (98-107); CREATININE FOR GFR 1.15 MG/DL (0.70-1.30); GLOMERULAR FILTRATION RATE > 60.0 (>35); GLUCOSE, FASTING 148 MG/DL (83-110); POTASSIUM SERUM 4.2 MEQ/L (3.5-5.1); SODIUM LEVEL 141 MEQ/L (136-145)
[2016-09-24] MEDS: HEPARIN SOD (PORCINE) 5000 UNITS/ML VIAL SQ SCH ×3 (06:07→21:22)
[2016-09-24] MEDS: LEVOTHYROXINE 0.05 MG TAB (50 MCG) PO SCH (06:07)
--- NOTE | 2016-09-24 07:23 | ECGEPIP ---
Stationary ECG Study [facility] - ED Test Date: 2016-09-23 Pat Name: WILDER BAUTISTA Department: Room: - Gender: M [employer]: : [id number] Requested By: Yony Duffy Order Number: [id number] Reading MD: Poornima Zamora Measurements Intervals [place] Rate: 87 P: 67 WI: 116 QRS: 70 QRSD: 88 T: 41 QT: 350 QTc: 423 Interpretive Statements SINUS RHYTHM WITH SINUS ARRHYTHMIA WITH SHORT WI INTERVAL NONSPECIFIC ST & T-WAVE ABNORMALITY SIMILAR 11/09/13 Electronically Signed On 09-24-2016 7:23:19 EST by Poornima Zamora
[2016-09-24] MEDS: guaiFENesin ER 600 MG TAB PO SCH ×2 (08:37→21:22)
[2016-09-24] MEDS: DOCUSATE SODIUM 100 MG CAP PO SCH ×2 (08:37→21:22)
[2016-09-24] MEDS: TAMSULOSIN 0.4 MG CAP PO SCH (08:37)
[2016-09-24] MEDS: ASPIRIN 81 MG ENTERIC TAB PO SCH (08:37)
[2016-09-24] MEDS: VITAMIN D (CHOLECALCIFEROL) 400 INTERNATIONAL UNITS TAB PO SCH (08:37)
[2016-09-24] MEDS: LACTOBACILLUS ACIDOPHILUS CAP (BACID) PO SCH ×2 (08:37→17:28)
[2016-09-24] MEDS: AZITHROMYCIN 500 MG, VIAL MATE ADAPTER 1 EACH in D5W 250 ML IV SCH (12:44)
[2016-09-24] MEDS: methylPREDNISolone INJ 125 MG/2 ML VIAL (J2930) IV SCH (12:44)
[2016-09-24] MEDS ORDERED: AZITHROMYCIN 500 MG, VIAL MATE ADAPTER 1 EACH in D5W 250 ML IV SCH (13:00)
[2016-09-24 14:00] VITALS: BP 138/67
--- NOTE | 2016-09-24 14:29 | IPNPDOC ---
Assessment/Plan Date Seen The patient was seen on 09/24/16. Plan / VTE VTE Prophylaxis Ordered?: Yes Plan Plan Text 1. Acute on chronic hypoxic respiratory failure 2/2 LLL Pneumonia, COPD exacerbation Patient states his respiratory status is improved from overnight Continue the patient on duo nebs, and titrate oxygen 88-92% Continue on Solu-Medrol Rocephin and azithromycin for antibiotic coverage Sputum culture pending We'll continue to monitor the patient's respiratory status 2. Left lower lobe community-acquired pneumonia Blood cultures negative thus far Sputum culture pending Continue on azithromycin and Rocephin 3. History of diastolic heart failure. Currently appears volume compensated Not on any diuretics at home Echocardiogram pending 4. Acute kidney injury resolved Serum creatinine back to within normal limits 5. Hypercholesterolemia. Continue statin 6. Pulmonary hypertension. Echocardiogram pending 7. Benign prostatic hypertrophy (BPH), stable. Continue on tamsulosin. Subjective Review of Systems CC/HPI The patient is a 86-year-old male admitted with a reason for visit of Left Lower Lobe Pneumonia. General: Denies: Chills, Night Sweats Constitutional: Denies: Chills, Fever Eyes: Denies: Pain, Vision change ENT: Denies: Ear Pain, Head Aches Skin: Denies: Lesions, Rash Pulmonary: Reports: Cough, Dyspnea Cardiovascular: Denies: Chest Pain, Palpitations Gastrointestinal: Denies: Nausea, Vomiting Genitourinary: Denies: Dysuria, Frequency Hematologic: Denies: Bleeding Excessively, Bruising Objective Physical Examination General Exam: Positive: Alert, Cooperative, No Acute Distress ENT Exam: Positive: Atraumatic, Mucous membr. moist/pink Chest Exam: Positive: Diminished, Negative: Rales, Wheezing Heart Exam: Positive: Normal S1, Normal S2, Rate Normal Abdomen Exam: Positive: Soft, Negative: Tenderness Extremity Exam: Negative: Edema, Tenderness Vital Signs/I&O Vital Signs Date Time Temp Pulse Resp B/P Pulse Ox O2 Delivery O2 Flow Rate FiO2 09/24/16 05:05 96.9 82 17 166/78 93 Nasal Cannula 2.0 I&O- Last 24 Hours up to 6 AM 09/24/16 06:00 Intake Total 530 ml Output Total 600 ml Balance -70 ml Laboratory Data Labs 24H Laboratory Tests 2 09/23/16 18:31: 09/24/16 05:15: Anion Gap 10, White Blood Count 10.4H, Red Blood Count 4.75, Hemoglobin 15.2, Hematocrit 44.9, Mean Corpuscular Volume 94.4, Mean Corpuscular Hemoglobin 32.0 , Mean Corpuscular Hemoglobin Concent 33.9, Red Cell Distribution Width 13.5, Platelet Count 119L, Neutrophils (%) (Auto) 92.3H, Lymphocytes (%) (Auto) 3.2L, Monocytes (%) (Auto) 3.6, Eosinophils (%) (Auto) 0.3, Basophils (%) (Auto) 0.0, Neutrophils # (Auto) 9.6H, Lymphocytes # (Auto) 0.3L, Monocytes # (Auto) 0.4, Eosinophils # (Auto) 0.0, Basophils # (Auto) 0.0, Blood Urea Nitrogen 27H, Creatinine 1.15, Sodium Level 141, Potassium Level 4.2, Chloride Level 101, Carbon Dioxide Level 30, Calcium Level 9.7, Glomerular Filtration Rate > 60.0, Large Unclassified Cells # 0.1, Large Unclassified Cells % 0.6 CBC/BMP Laboratory Tests 09/24/16 05:15 Calcium Level 9.7, Red Blood Count 4.75, Mean Corpuscular Volume 94.4, Mean Corpuscular Hemoglobin 32.0, Mean Corpuscular Hemoglobin Concent 33.9, Red Cell Distribution Width 13.5, Neutrophils (%) (Auto) 92.3 H, Lymphocytes (%) (Auto) 3.2 L, Monocytes (%) (Auto) 3.6, Eosinophils (%) (Auto) 0.3, Basophils (%) (Auto ) 0.0, Neutrophils # (Auto) 9.6 H, Lymphocytes # (Auto) 0.3 L, Monocytes # (Auto ) 0.4, Eosinophils # (Auto) 0.0, Basophils # (Auto) 0.0 Microbiology Microbiology 09/23/16 Blood Culture - Preliminary, Resulted No growth after 24 hours . All specim... 09/23/16 Blood Culture - Preliminary, Resulted No growth after 24 hours . All specim... 09/23/16 MRSA Screen, Received Pending 09/23/16 Influenza Virus Type A Antigen - Final, Complete 09/23/16 Influenza Virus Type B Antigen - Final, Complete TANNER CORDOBA MD Sep 24, 2016 14:29
[2016-09-24 21:05] VITALS: BP 173/72
[2016-09-24] MEDS: SIMVASTATIN 10 MG TAB PO SCH (21:22)
[2016-09-25] MEDS: LEVALBUTEROL 1.25 MG/0.5 ML CONCENTRATE NEB INH SCH ×7 (00:14→23:09)
[2016-09-25] MEDS: cefTRIAXone SOD 2 GM in D5W MINI-BAG PLUS 50 ML IV SCH (00:29)
[2016-09-25] MEDS: methylPREDNISolone INJ 125 MG/2 ML VIAL (J2930) IV SCH ×2 (00:29→12:00)
[2016-09-25] MEDS ORDERED: ONDANSETRON 4MG/2ML VIAL (J2405) IV PRN (00:45)
[2016-09-25 01:28] VITALS: BP 164/98
[2016-09-25] MEDS: LEVOTHYROXINE 0.05 MG TAB (50 MCG) PO SCH (05:41)
[2016-09-25] MEDS: HEPARIN SOD (PORCINE) 5000 UNITS/ML VIAL SQ SCH ×3 (05:42→21:23)
[2016-09-25 06:05] VITALS: BP 172/78
[2016-09-25 06:30] LABS: EOS % 0.1 % (0.0-3.0); LARGE UNSTAINED CELL # 0.1 K/mm3 (0.0-0.4); LARGE UNSTAINED CELL % 0.7 % (0.0-4.0); LYMPH # 0.3 K/mm3 (1.5-4.5); LYMPH % 1.8 % (24.0-44.0); MEAN CORPUSCULAR HEMOGLOBIN 31.8 pg (27.0-33.0); MEAN CORPUSCULAR HGB CONC 34.1 g/dl (32.0-36.5); MEAN CORPUSCULAR VOLUME 93.2 fl (80.0-96.0); MONO # 0.7 K/mm3 (0.0-0.8); MONO % 3.7 % (0.0-5.0); NEUTROPHILS # 17.6 K/mm3 (1.8-7.7); NEUTROPHILS % 93.7 % (36.0-66.0); PLATELET COUNT, AUTOMATED 189 k/mm3 (150-450); RED CELL DISTRIBUTION WIDTH 13.5 % (11.5-14.5); WHITE BLOOD COUNT 18.8 K/mm3 (4.0-10.0)
[2016-09-25 06:56] LABS: CALCIUM LEVEL 9.2 MG/DL (8.8-10.2); CREATININE FOR GFR 1.27 MG/DL (0.70-1.30); GLOMERULAR FILTRATION RATE 57.5 (>35); POTASSIUM SERUM 4.2 MEQ/L (3.5-5.1)
[2016-09-25] MEDS: LACTOBACILLUS ACIDOPHILUS CAP (BACID) PO SCH ×2 (09:18→17:42)
[2016-09-25] MEDS: TAMSULOSIN 0.4 MG CAP PO SCH (09:19)
[2016-09-25] MEDS: VITAMIN D (CHOLECALCIFEROL) 400 INTERNATIONAL UNITS TAB PO SCH (09:19)
[2016-09-25] MEDS: ASPIRIN 81 MG ENTERIC TAB PO SCH (09:20)
[2016-09-25] MEDS: DOCUSATE SODIUM 100 MG CAP PO SCH ×2 (09:20→21:22)
[2016-09-25] MEDS: guaiFENesin ER 600 MG TAB PO SCH ×2 (09:20→21:22)
[2016-09-25 10:00] VITALS: BP 164/74
--- NOTE | 2016-09-25 11:02 | IPNPDOC ---
Assessment/Plan Date Seen The patient was seen on 09/25/16. Plan / VTE VTE Prophylaxis Ordered?: Yes Plan Plan Text 1. Acute on chronic hypoxic respiratory failure 2/2 LLL Pneumonia, COPD exacerbation Patient states his respiratory status has improved since admission Continue the patient on duo nebs, and titrate oxygen 88-92% Continue on Solu-Medrol Rocephin and azithromycin for antibiotic coverage Sputum culture pending We'll continue to monitor the patient's respiratory status 2. Left lower lobe community-acquired pneumonia Blood cultures negative thus far Sputum culture pending Continue on azithromycin and Rocephin 3. History of diastolic heart failure. Currently appears volume compensated Not on any diuretics at home Echocardiogram pending 4. Acute kidney injury resolved Serum creatinine back to within normal limits 5. Hypercholesterolemia. Continue statin 6. Pulmonary hypertension. Echocardiogram pending 7. Benign prostatic hypertrophy (BPH), stable. Continue on tamsulosin. Subjective Review of Systems CC/HPI Patient seen and examined at the bedside today, states that he did not get restful sleep last night because he was anxious and has not been eating like he normally does. However, he does note that he is feeling better now that he has had some breakfast. General: Denies: Chills, Night Sweats Constitutional: Denies: Chills, Fever Eyes: Denies: Pain, Vision change ENT: Denies: Ear Pain, Head Aches Skin: Denies: Lesions, Rash Pulmonary: Reports: Cough, Dyspnea Cardiovascular: Denies: Chest Pain, Palpitations Gastrointestinal: Denies: Abdominal Pain, Nausea, Vomiting Hematologic: Denies: Bleeding Excessively, Bruising Objective Physical Examination General Exam: Positive: Alert, Cooperative, No Acute Distress ENT Exam: Positive: Atraumatic, Mucous membr. moist/pink Chest Exam: Positive: Diminished, Negative: Rales, Wheezing Heart Exam: Positive: Normal S1, Normal S2, Rate Normal Abdomen Exam: Positive: Soft, Negative: Tenderness Extremity Exam: Negative: Edema, Tenderness Vital Signs/I&O Vital Signs Date Time Temp Pulse Resp B/P Pulse Ox O2 Delivery O2 Flow Rate FiO2 09/25/16 10:00 Nasal Cannula 2.0 09/25/16 10:00 97.5 86 22 164/74 94 I&O- Last 24 Hours up to 6 AM 09/25/16 06:00 Intake Total 1010 ml Output Total 1025 ml Balance -15 ml Laboratory Data Labs 24H Laboratory Tests 2 09/25/16 05:55: Anion Gap 11, White Blood Count 18.8H, Red Blood Count 4.65, Hemoglobin 14.8, Hematocrit 43.3, Mean Corpuscular Volume 93.2, Mean Corpuscular Hemoglobin 31.8 , Mean Corpuscular Hemoglobin Concent 34.1, Red Cell Distribution Width 13.5, Platelet Count 189, Neutrophils (%) (Auto) 93.7H, Lymphocytes (%) (Auto) 1.8L, Monocytes (%) (Auto) 3.7, Eosinophils (%) (Auto) 0.1, Basophils (%) (Auto) 0.0, Neutrophils # (Auto) 17.6H, Lymphocytes # (Auto) 0.3L, Monocytes # (Auto) 0.7, Eosinophils # (Auto) 0.0, Basophils # (Auto) 0.0, Blood Urea Nitrogen 35H, Creatinine 1.27, Sodium Level 141, Potassium Level 4.2, Chloride Level 104, Carbon Dioxide Level 26, Calcium Level 9.2, Glomerular Filtration Rate 57.5, Large Unclassified Cells # 0.1, Large Unclassified Cells % 0.7 CBC/BMP Laboratory Tests 09/25/16 05:55 Calcium Level 9.2, Red Blood Count 4.65, Mean Corpuscular Volume 93.2, Mean Corpuscular Hemoglobin 31.8, Mean Corpuscular Hemoglobin Concent 34.1, Red Cell Distribution Width 13.5, Neutrophils (%) (Auto) 93.7 H, Lymphocytes (%) (Auto) 1.8 L, Monocytes (%) (Auto) 3.7, Eosinophils (%) (Auto) 0.1, Basophils (%) (Auto ) 0.0, Neutrophils # (Auto) 17.6 H, Lymphocytes # (Auto) 0.3 L, Monocytes # ( Auto) 0.7, Eosinophils # (Auto) 0.0, Basophils # (Auto) 0.0 Microbiology Microbiology 09/23/16 Blood Culture - Preliminary, Resulted No growth after 24 hours . All specim... 09/23/16 Blood Culture - Preliminary, Resulted No growth after 24 hours . All specim... 09/25/16 Gram Stain - Final, Resulted 09/25/16 Sputum Culture, Resulted Pending 09/23/16 MRSA Screen - Final, Complete 09/23/16 Influenza Virus Type A Antigen - Final, Complete 09/23/16 Influenza Virus Type B Antigen - Final, Complete TANNER CORDOBA MD Sep 25, 2016 11:02
[2016-09-25] MEDS: AZITHROMYCIN 500 MG, VIAL MATE ADAPTER 1 EACH in D5W 250 ML IV SCH (13:00)
[2016-09-25 14:00] VITALS: BP 134/60
[2016-09-25] MEDS: ACETAMINOPHEN TAB 650MG DOSE (2X325MG) PO PRN (14:43)
--- NOTE | 2016-09-25 18:15 | EDDOCDS ---
Physician Documentation [facility] Name: Tang Bonilla Age: 86 yrs Sex: Male : 1930 Arrival Date: 09/23/2016 Time: 10:24 Bed Admit Hold Private MD: [place] Disposition: 09/23 13:16 Critical Care: Critical care not applicable. pc Disposition: 09/23/16 15:47 Hospitalization ordered by Isabel Andrea for Inpatient Admission. Preliminary diagnosis are Bronchopneumonia, unspecified organism - LLL, Chronic obstructive pulmonary disease with acute lower respiratory infection. - Bed requested for 4 Kila. - Status is Inpatient Admission. js13 - Condition is Stable. - Problem is new. - Symptoms have improved. HPI: 12:06 This 86 yrs old Male presents to ER via Walkin/Carried/Asstd with complaints pc of Breathing Difficulty. 12:06 The history is obtained from the patient. The patient presents with shortness of pc breath, with a prior history of COPD. The symptoms began gradually 8 days ago, He increased his prednisone to 30mg daily and tapered back down to his usual 10mg over 7 days. He felt well for 3-4 days but now feels just like he did last week. He denies any fevers or chills but has a low grade fever today in the ED.. There were no precipitating events that led to the current complaints. The patient has shortness of breath at rest, with light activity. At their worst, the symptoms were moderate. In the emergency department, the symptoms are mild. The patient's dyspnea was accompanied with cough, productive, of yellow sputum, heart racing. The patient has experienced similar episodes in the past, chronically. The patient has been recently seen by their primary care provider. Historical: - Allergies: Cipro PO; PENICILLINS; Levofloxacin (pulled achilles tendon apart); - Home Meds: 1. albuterol sulfate 90 mcg/actuation Inhl aepb 2 puffs every 4-6 hours 2. albuterol sulfate 2.5 mg /3 mL (0.083 %) Nebulizer nebu 4 times per day 3. cholecalciferol (vitamin D3) 400 u 3 tabs oral cap daily 4. sywmcjp63/hypromellose 0.3% 1 drop both eyes bid 5. guaifenesin 200 mg Oral tab four times a day 6. ipratropium bromide 0.02 % inhalation soln 2.5 mL 3-4 times daily 7. ipratropium-albuterol 18-103 mcg/actuation Inhl aero 4 times per day 8. prednisone 10 mg Oral tab once daily 9. sildenafil 100 mg oral tab as needed 10. simvastatin 20 mg oral tab once daily 11. tamsulosin 0.4 mg oral cp24 once daily 12. aspirin 81 mg Oral tab once daily 13. docusate sodium 100 mg Oral cap 2 times per day 14. vitamin b complex cap mon-fri 15. olodaterol 2.5 mcg/actuation inhalation mist 2 puffs once daily 16. Oxygen 2 L continuous - PMHx: COPD; CHF; Hypercholesterolemia; Hypertension; BPH; - PSHx: Cataract Surgery; - The history from nurses notes was reviewed: and I agree with what is documented. - Social history: No barriers to communication noted, The patient speaks fluent Y[place], Smoking status: Patient states former smoker of tobacco. - Family history: Not pertinent. - : The pt / caregiver states he / she is not on anticoagulants. Home medication list is obtained from family members. - Hospitalizations: : No recent hospitalization is reported. - Exposure Risk Screening:: None identified. - Immunization history:: All immunizations up-to-date. - Social history:: the patient is a former smoker, the patient does not drink alcohol. ROS: 12:06 All systems are negative except as listed. The gastrointestinal and genitourinary pc components are also addressed in the HPI. Exam: 12:06 General Appearance: alert, the patient is in mild distress. pc 12:06 EENT: normal eye inspection, ears, nose and throat normal, pharynx normal, mucous membranes moist 12:06 Neck: normal inspection. 12:06 Respiratory: no respiratory distress, no pleuritic chest pain, speaks in full sentences, auscultation reveals wheezes, diffusely, decreased air entry noted throughout 12:06 Cardiovascular: normal heart rate, normal rhythm, no jugular venous distension appreciated, no murmurs, no gallop, no friction rub. 12:06 Abdomen: non-tender, non-distended, no organomegaly, no ascites. 12:06 Skin: normal color, warm, dry. 12:06 Extremities: non-tender, normal range of motion of all joints, no pedal edema. 12:06 Neuro: alert, oriented to person, place and time, cranial nerves normal as tested, no motor deficits, no sensory deficits. 12:06 Psych: normal mood. Vital Signs: 10:26 BP 149 / 67; Pulse 94; Resp 24; Temp 100.5(O); Pulse Ox 92% 4 lpm ; Weight 68.04 kg / cmb 150 lbs; Height 5 ft. 8 in. (172.72 cm); Pain 0/10; 11:42 BP 167 / 76 (auto/); js13 11:42 Pulse 88 MON; Resp 18; Pulse Ox 89% on 2 lpm NC; js13 11:57 BP 180 / 81 (auto/); js13 11:57 Pulse 88 MON; Resp 18; Pulse Ox 93% on 2 lpm NC; js13 12:12 BP 171 / 74 (auto/); js13 12:12 Pulse 84 MON; Resp 18; Pulse Ox 95% on 2 lpm NC; js13 12:27 BP 157 / 66 (auto/); js13 12:27 Pulse 88 MON; Resp 16; Pulse Ox 99% on 2 lpm NC; js13 12:42 BP 151 / 59 (auto/); js13 12:42 Pulse 86 MON; Resp 18; Pulse Ox 99% 2 lpm ; js13 12:57 BP 151 / 66 (auto/); js13 12:57 Pulse 90 MON; Resp 18; Pulse Ox 94% on 2 lpm NC; js13 13:12 BP 156 / 70 (auto/); js13 13:12 Pulse 93; Resp 20; Pulse Ox 95% on 2 lpm NC; js13 13:15 Temp 99.5(O); js13 13:27 BP 164 / 73 (auto/); js13 13:27 Pulse 94 MON; Resp 20; Pulse Ox 93% on 2 lpm NC; js13 13:42 BP 174 / 84 (auto/); js13 13:42 Pulse 86 MON; Resp 18; Pulse Ox 91% on 2 lpm NC; js13 13:57 BP 152 / 60 (auto/); js13 13:57 Pulse 90 MON; Resp 18; Pulse Ox 92% on 2 lpm NC; js13 14:12 BP 145 / 66 (auto/); js13 14:12 Pulse 90 MON; Resp 20; Pulse Ox 91% on 2 lpm NC; js13 14:27 BP 152 / 71 (auto/); js13 14:27 Pulse 86 MON; Resp 18; Pulse Ox 92% on 2 lpm NC; js13 14:42 BP 147 / 59 (auto/); js13 14:42 Pulse 88 MON; Resp 18; Pulse Ox 93% on 2 lpm NC; js13 14:57 BP 143 / 64 (auto/); js13 14:57 Pulse 86 MON; Resp 20; Pulse Ox 92% on 2 lpm NC; js13 15:12 BP 178 / 82 (auto/); js13 15:12 Pulse 88 MON; Resp 20; Pulse Ox 94% on 2 lpm NC; js13 15:27 BP 162 / 70 (auto/); js13 15:27 Pulse 90 MON; Resp 18; Pulse Ox 93% on 2 lpm NC; js13 15:42 BP 179 / 113 (auto/); js13 15:42 Pulse 90 MON; Resp 18; Pulse Ox 93% on 2 lpm NC; js13 15:57 BP 161 / 73 (auto/); js13 15:57 Pulse 86 MON; Resp 18; Pulse Ox 93% on 2 lpm NC; js13 16:12 BP 156 / 77 (auto/); js13 16:12 Pulse 88 MON; Resp 20; Temp 98.3(O); Pulse Ox 94% on 2 lpm NC; js13 10:26 Body Mass Index 22.81 (68.04 kg, 172.72 cm) cmb MDM: 11:09 -Blood Culture (Adults Only), peripheral from different site, or from device/port/PICC pc etc. if present ordered. 11:09 Supervisor Patching/Pulse Ox/q 15 min VS ordered. pc 11:09 IV Saline Lock ordered. pc 11:09 Rhythm Strip to chart ordered. pc 11:10 Basic Metabolic Profile Ordered. EDMS 11:10 CBC with Diff Ordered. EDMS 11:10 -Blood Culture Ordered. EDMS 11:11 Chest, 2 View (pa\E\lat) Ordered. EDMS 11:11 ECG WITH READING ER PHYS+CARDIAG ordered. EDMS 11:17 -Blood Culture (Adults Only), peripheral from different site, or from device/port/PICC deg etc. if present complete. 11:19 BLOOD CULTURES Ordered. EDMS 11:57 Solu-MEDROL 125 mg IVP once ordered. pc 11:57 Acetaminophen Tablet 650 mg PO once ordered. pc 11:58 Albuterol-Ipratropium 1 neb Nebulizer every 20 minutes x3 ordered. pc 11:58 Call Respiratory ordered. pc 11:58 Call Respiratory ordered. pc 11:58 Basic Metabolic Profile Reviewed. pc 11:58 CBC with Diff Reviewed. pc 11:59 Call Respiratory complete. js13 11:59 Call Respiratory complete. js13 11:59 -Arterial Blood Gas Ordered. EDMS 12:06 Differential diagnosis: Chronic Obstructive Pulmonary Disease pneumonia. Plan: labs, pc nebs, imaging, meds. 12:33 Test interpretation: EKG. pc 12:42 -Arterial Blood Gas Reviewed. pc 12:42 Chest, 2 View (pa\E\lat) Reviewed. pc 12:43 CT Chest Without Contrast Ordered. EDMS 13:15 cefTRIAXone 1 grams IVPB once over 30 mins; dilute in 50mL of NS or D5W ordered. pc 13:15 azithromycin 500 mg IVPB once over 1 hrs; dilute in 250mL of D5W or NS ordered. pc 13:15 BED REQUEST+ADM ordered. EDMS 13:16 Antibiotic administration: The patient will be admitted to a regular floor, and has pc been given the following antibiotics: Rocephin and Zithromax given. Data reviewed: old medical records, vital signs, nurses notes, EKG(s), lab test results, all radiology studies and available results. Test interpretation: LAB - all labs as ordered have been reviewed, interpreted and considered in the overall management of the clinical presentation; Arterial blood gas is normal except. pO2: 116 X-RAY - interpreted by Radiologist and personally reviewed, 2 view chest, COPD, LLL atectasis interpreted by Radiologist and personally reviewed, Chest CT; COPD, acute LLL infiltrate. The patient has been re-examined and re-evaluated. The patient's symptoms have mildly improved after treatment. Physician consultation: Dr. Isabel Andrea was contacted at 13:17, regarding admission, and will see patient in ED, shortly. Disposition: The historical points, examination findings, and any diagnostic results supporting the provided diagnosis, were discussed with the patient or legal guardian. The need for further work-up and/or treatment in the hospital was explained. 13:24 Admission / Observation Status ordered. EDMS 13:26 PHYSICAL THERAPY EVAL & TREAT ordered. EDMS 13:48 Financial registration complete. lg 13:56 ED course: After starting ABX, he has refused admission and requests to sign out AMA. pc Disposition: The historical points, examination findings, and any diagnostic results supporting the provided diagnosis, were discussed with the patient or legal guardian. The risks (severe disability/impairment and/or ) and benefits (continued evaluation/treatment of potentially life threatening illness) were explained in detail to the pt/parent/guardian. There is no evidence or suspicion of mental impairment due to drugs, alcohol, brain injury, stroke, dementia, mental delay or medical/psychiatric illness and the pt. is not a minor. The pt. demonstrates capacity/understanding: chose to sign out AMA. 14:03 CT Chest Without Contrast Reviewed. pc 14:09 [facility] Payment Agreement was scanned into [employer] and attached to record. lg 15:47 ED course: After discussing his case with the [place], he has decided to now stay for admission. Dr. Andrea has been renotified.. 15:51 Admission / Observation Status ordered. EDMS 15:51 LOW FAT LOW CHOLESTEROL DIET ordered. EDMS 15:52 LEGIONELLA ANTIGEN URINE Ordered. EDMS 15:52 URINE STREP PNEUMONIAE ANTIGEN Ordered. EDMS 15:52 INFLUENZA A&B RAPID ANTIGEN Ordered. EDMS 15:52 SPUTUM CULTURE AND GRAM STAIN Ordered. EDMS 15:52 MRSA SCREEN Ordered. EDMS 15:53 PHYSICAL THERAPY EVAL & TREAT ordered. EDMS 16:58 BRAIN NATIURETIC PEPTIDE Ordered. EDMS 16:59 ECHOCARD,DOPPLER/COLOR FLOW ordered. EDMS 17:10 THYROID STIMULATING HORMONE Ordered. EDMS EC:33 Rate is 87 beats/min. Rhythm is regular, Normal Sinus Rhythm. QRS Tanner is Normal. OH pc interval is normal. QRS interval is shortened at 116 msec. QT interval is normal. No Q waves. T waves are Normal. ST Segment is depressed in leads II, aVF, V4, V5, V6, <1mm. Clinical impression: Normal Sinus Rhythm and Nonspecific ST-T changes. No change from previous ECG in October,. Administered Medications: 12:03 Drug: Solu-MEDROL 125 mg [Solu-Medrol 500 mg intravenous solution (125 mg)] Route: IVP; js13 Site: left antecubital; 12:03 Drug: Acetaminophen 650 mg [acetaminophen 325 mg tablet (2 tabs)] Route: PO; js13 13:15 Follow up: Temp 99.5 Oral; Response: Temperature is decreased js13 12:10 Drug: Albuterol-Ipratropium 1 neb [ipratropium-albuterol 0.5 mg-3 mg(2.5 mg base)/3 mL cs15 nebulization soln (1 neb)] Route: Nebulizer; 12:35 Drug: Albuterol-Ipratropium 1 neb [ipratropium-albuterol 0.5 mg-3 mg(2.5 mg base)/3 mL cs15 nebulization soln (1 neb)] Route: Nebulizer; 12:55 Drug: Albuterol-Ipratropium 1 neb [ipratropium-albuterol 0.5 mg-3 mg(2.5 mg base)/3 mL cs15 nebulization soln (1 neb)] Route: Nebulizer; 13:29 Drug: cefTRIAXone 1 grams [ceftriaxone 1 gram solution for injection] Route: IVPB; js13 Infused Over: 30 mins; Site: left antecubital; 14:43 Follow up: IV Status: Completed infusion; IV Intake: 50ml js13 13:49 Drug: azithromycin 500 mg [azithromycin 500 mg intravenous solution] Route: IVPB; js13 Infused Over: 1 hrs; Site: left antecubital; 16:31 Follow up: IV Status: Completed infusion; IV Intake: 250ml js13 Signatures: Dispatcher [employer] EDMS Yony Mcconnell MD MD pc Murray, Denise, Surface Supervisor Unit deg Joselyn Lemus RN RN srm Garrett Brenner, Reg Reg Linh McelroyRN RN js13 Patricia Acuña RN RN [id number] Brandy Keyes RN RN [facility] Corey Mehta RT [id number] The chart was reviewed and I authenticate all verbal orders and agree with the evaluation and treatment provided.Corrections: (The following items were deleted from the chart) 11:31 10:48 Home Meds: hydrochlorothiazide 25 mg Oral tab once daily; 4 srm 11:31 10:48 Home Meds: levofloxacin 500 mg Oral tab once daily; 4 srm 11:31 10:48 Home Meds: levothyroxine 50 mcg Oral cap once daily; 4 srm 11:38 11:31 Allergies: Levofloxacin (made legs swell); srm srm 11:49 10:48 Home Meds: doxycycline hyclate 100 mg Oral cap every 12 hours; 4 js13 13:32 13:24 LOW FAT LOW CHOLESTEROL DIET ordered. EDMS EDMS 13:32 13:25 LEGIONELLA ANTIGEN URINE ordered. EDMS EDMS 13:32 13:25 URINE STREP PNEUMONIAE ANTIGEN ordered. EDMS EDMS 13:33 13:25 BASIC METABOLIC PROFILE ordered. EDMS EDMS 13:33 13:25 SPUTUM CULTURE AND GRAM STAIN ordered. EDMS EDMS 17:12 17:00 THYROID STIMULATING HORMONE ordered. EDMS EDMS Attachments: 14:09 [facility] Payment Agreement lg Chart Complete MTDD
--- NOTE | 2016-09-25 18:15 | EDDOCDS ---
Nurse's Notes [facility] Name: Tang Bonilla Age: 86 yrs Sex: Male : 1930 Arrival Date: 09/23/2016 Time: 10:24 Bed Admit Hold Private MD: [place] Max [place] Diagnosis: Bronchopneumonia, unspecified organism-LLL;Chronic obstructive pulmonary disease with acute lower respiratory infection Presentation: 09/23 10:34 Presenting complaint: Patient states: copd history has had worsening symptoms for 2 mk4 weeks. Adult Sepsis Screening: The patient does not have new or worsening altered mentation. Patient has a respiratory rate of greater than or equal to 22 (1 point). Systolic blood pressure is greater than 100. Patient has a qSOFA score of 1- Negative Sepsis Screen. Suicide/Homicide risk assessment- the patient denies having any suicidal and/or homicidal ideations and does not present with any other emotional, behavioral or mental health complaints. 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 Transition of care: patient was not received from another setting of care. 10:34 Acuity: TENZIN Level 3 4 10:34 Method Of Arrival: Walkin/Carried/Asstd 4 10:34 Red Flag criteria, patient assessed and taken directly to a bed. 4 Triage Assessment: 10:36 General: Appears distressed. Respiratory: Onset: The symptoms/episode began/occurred 2 mk4 weeks , Airway is patent Respiratory effort is labored, Respiratory pattern is tachypnea. Historical: - Allergies: Cipro PO; PENICILLINS; Levofloxacin (pulled achilles tendon apart); - Home Meds: 1. albuterol sulfate 90 mcg/actuation Inhl aepb 2 puffs every 4-6 hours 2. albuterol sulfate 2.5 mg /3 mL (0.083 %) Nebulizer nebu 4 times per day 3. cholecalciferol (vitamin D3) 400 u 3 tabs oral cap daily 4. zgxapnd26/hypromellose 0.3% 1 drop both eyes bid 5. guaifenesin 200 mg Oral tab four times a day 6. ipratropium bromide 0.02 % inhalation soln 2.5 mL 3-4 times daily 7. ipratropium-albuterol 18-103 mcg/actuation Inhl aero 4 times per day 8. prednisone 10 mg Oral tab once daily 9. sildenafil 100 mg oral tab as needed 10. simvastatin 20 mg oral tab once daily 11. tamsulosin 0.4 mg oral cp24 once daily 12. aspirin 81 mg Oral tab once daily 13. docusate sodium 100 mg Oral cap 2 times per day 14. vitamin b complex cap mon-fri 15. olodaterol 2.5 mcg/actuation inhalation mist 2 puffs once daily 16. Oxygen 2 L continuous - PMHx: COPD; CHF; Hypercholesterolemia; Hypertension; BPH; - PSHx: Cataract Surgery; - The history from nurses notes was reviewed: and I agree with what is documented. - Social history: No barriers to communication noted, The patient speaks fluent Georgian, Smoking status: Patient states former smoker of tobacco. - Family history: Not pertinent. - : The pt / caregiver states he / she is not on anticoagulants. Home medication list is obtained from family members. - Hospitalizations: : No recent hospitalization is reported. - Exposure Risk Screening:: None identified. - Immunization history:: All immunizations up-to-date. - Social history:: the patient is a former smoker, the patient does not drink alcohol. Screenin:30 Screening information is obtained from the patient. Fall risk: At risk due to age. js13 Assistance ADL's: requires no assistance with activities of daily living. Abuse/DV Screen: The patient / caregiver reports he/she is: not in a situation that causes fear, pain or injury. Nutritional screening: No deficits noted. Advance Directives: There is no active DNR order. home support is adequate. Assessment: 11:40 General: Appears in no apparent distress, Behavior is appropriate for age, cooperative. js13 Neurological: Level of Consciousness is awake, alert. Cardiovascular: Rhythm is regular Chest pain is denied. Respiratory: Airway is patent Respiratory effort is even, unlabored, Respiratory pattern is regular, Breath sounds with rhonchi Breath sounds are diminished Reports cough that is productive. Derm: Skin is pink, warm & dry. 11:40 Pain: Denies pain. js13 12:39 General: Appears in no apparent distress, Behavior is appropriate for age, cooperative. js13 Pain: Denies pain. Neurological: Level of Consciousness is awake, alert. Cardiovascular: Rhythm is sinus rhythm Chest pain is denied. Respiratory: Airway is patent Respiratory effort is even, unlabored, Respiratory pattern is regular, symmetrical, Breath sounds are diminished. Derm: Skin is pink, warm & dry. 13:40 Adult Sepsis Screening: The patient does not have new or worsening altered mentation. js13 Patient's respiratory rate is less than 22. Systolic blood pressure is greater than 100. Patient has a qSOFA score of 0- Negative Sepsis Screen. 14:45 General: Appears in no apparent distress, Behavior is appropriate for age, cooperative. js13 Pain: Denies pain. Neurological: Level of Consciousness is awake, alert. Cardiovascular: Rhythm is sinus rhythm Chest pain is denied. Respiratory: Airway is patent Respiratory effort is even, unlabored, Respiratory pattern is regular, symmetrical, Breath sounds are diminished. Derm: Skin is pink, warm & dry. 15:50 General: Appears in no apparent distress, Behavior is appropriate for age, cooperative. js13 Pain: Denies pain. Neurological: Level of Consciousness is awake, alert. Cardiovascular: Rhythm is sinus rhythm Chest pain is denied. Respiratory: Airway is patent Respiratory effort is even, unlabored, Respiratory pattern is regular, symmetrical, Breath sounds are diminished. Derm: Skin is pink, warm & dry. 16:26 General: Appears in no apparent distress, Behavior is appropriate for age, cooperative. js13 Pain: Denies pain. Neurological: Level of Consciousness is awake, alert. Cardiovascular: Rhythm is sinus rhythm Chest pain is denied. Respiratory: Airway is patent Respiratory effort is even, unlabored, Respiratory pattern is regular, symmetrical, Breath sounds are diminished. Derm: Skin is pink, warm & dry. Social Work Consult: 14:41 LWBS/AMA AMA: Patient is refusing further stabilizing treatment at [facility], although rb offered treatment regardless of method of payment or ability to pay. Patient is aware that this action is being undertaken against the advice of the medical staff at [facility]. Pt. has capacity to understand the potential consequences of this choice. pt did notify ED staff. Patient / guardian did sign Refusal of Services form. Pt left before being seen by PSA. Vital Signs: 10:26 BP 149 / 67; Pulse 94; Resp 24; Temp 100.5(O); Pulse Ox 92% 4 lpm ; Weight 68.04 kg; cmb Height 5 ft. 8 in. (172.72 cm); Pain 0/10; 11:42 BP 167 / 76 (auto/); js13 11:42 Pulse 88 MON; Resp 18; Pulse Ox 89% on 2 lpm NC; js13 11:57 BP 180 / 81 (auto/); js13 11:57 Pulse 88 MON; Resp 18; Pulse Ox 93% on 2 lpm NC; js13 12:12 BP 171 / 74 (auto/); js13 12:12 Pulse 84 MON; Resp 18; Pulse Ox 95% on 2 lpm NC; js13 12:27 BP 157 / 66 (auto/); js13 12:27 Pulse 88 MON; Resp 16; Pulse Ox 99% on 2 lpm NC; js13 12:42 BP 151 / 59 (auto/); js13 12:42 Pulse 86 MON; Resp 18; Pulse Ox 99% 2 lpm ; js13 12:57 BP 151 / 66 (auto/); js13 12:57 Pulse 90 MON; Resp 18; Pulse Ox 94% on 2 lpm NC; js13 13:12 BP 156 / 70 (auto/); js13 13:12 Pulse 93; Resp 20; Pulse Ox 95% on 2 lpm NC; js13 13:15 Temp 99.5(O); js13 13:27 BP 164 / 73 (auto/); js13 13:27 Pulse 94 MON; Resp 20; Pulse Ox 93% on 2 lpm NC; js13 13:42 BP 174 / 84 (auto/); js13 13:42 Pulse 86 MON; Resp 18; Pulse Ox 91% on 2 lpm NC; js13 13:57 BP 152 / 60 (auto/); js13 13:57 Pulse 90 MON; Resp 18; Pulse Ox 92% on 2 lpm NC; js13 14:12 BP 145 / 66 (auto/); js13 14:12 Pulse 90 MON; Resp 20; Pulse Ox 91% on 2 lpm NC; js13 14:27 BP 152 / 71 (auto/); js13 14:27 Pulse 86 MON; Resp 18; Pulse Ox 92% on 2 lpm NC; js13 14:42 BP 147 / 59 (auto/); js13 14:42 Pulse 88 MON; Resp 18; Pulse Ox 93% on 2 lpm NC; js13 14:57 BP 143 / 64 (auto/); js13 14:57 Pulse 86 MON; Resp 20; Pulse Ox 92% on 2 lpm NC; js13 15:12 BP 178 / 82 (auto/); js13 15:12 Pulse 88 MON; Resp 20; Pulse Ox 94% on 2 lpm NC; js13 15:27 BP 162 / 70 (auto/); js13 15:27 Pulse 90 MON; Resp 18; Pulse Ox 93% on 2 lpm NC; js13 15:42 BP 179 / 113 (auto/); js13 15:42 Pulse 90 MON; Resp 18; Pulse Ox 93% on 2 lpm NC; js13 15:57 BP 161 / 73 (auto/); js13 15:57 Pulse 86 MON; Resp 18; Pulse Ox 93% on 2 lpm NC; js13 16:12 BP 156 / 77 (auto/); js13 16:12 Pulse 88 MON; Resp 20; Temp 98.3(O); Pulse Ox 94% on 2 lpm NC; js13 10:26 Body Mass Index 22.81 (68.04 kg, 172.72 cm) cmb Vitals: 10:26 Log In Time: September 23, 2016 at 10:24. RN notified that patient meets Red Flag cmb criteria. ED Course: 10:26 Patient visited by Jaz David. cmb 10:26 [facility] is Private Physician. cmb 10:26 Patient moved to Waiting cmb 10:29 Linh Ponce,RN is Primary Nurse. mk4 10:29 Patient moved to 18 mk4 10:35 Triage Initiated mk4 10:56 Patient visited by Patricia Acuña RN. mk4 10:59 Yony Mcconnell MD is Attending Physician. pc 11:25 EKG done. (by ED staff). Reviewed by Yony Mcconnell MD. ls3 11:25 O2 via nasal cannula \T\ 2L/min. js13 11:26 Patient visited by Geovanna Devlin PCA. ls3 11:29 BLOOD CULTURES Sent. srm 11:29 -Blood Culture Sent. srm 11:29 Basic Metabolic Profile Sent. srm 11:29 CBC with Diff Sent. srm 11:30 Inserted saline lock: 20 gauge in left antecubital area and blood collected. srm 11:57 Patient visited by Yony Mcconnell MD. pc 12:21 Chest, 2 View (pa\E\lat) Returned. EDMS 12:29 -Arterial Blood Gas Sent. cs15 12:40 Patient visited by Linh Ponce RN. js13 13:18 Isabel Andrea is Hospitalizing Provider. pc 13:45 CT Chest Without Contrast Returned. EDMS 13:59 [facility] [place] is Referral Physician. pc 14:09 Patient name changed from Tang\S\\S\Bonilla\S\ to Tang\S\ \S\Bonilla. EDMS 14:09 [facility] Payment Agreement was scanned into [employer] and attached to record. lg 14:46 Patient visited by Linh Ponce RN. js13 15:47 Isabel Andrea is Hospitalizing Provider. pc 15:51 Patient moved to Admit Hold js13 16:30 The patient / caregiver is instructed regarding the plan of care and ED course. Cardiac js13 monitor on. Pulse ox on. NIBP on. 16:30 No procedures done that require assistance. js13 Administered Medications: 12:03 Drug: Solu-MEDROL 125 mg [Solu-Medrol 500 mg intravenous solution (125 mg)] Route: IVP; js13 Site: left antecubital; 12:03 Drug: Acetaminophen 650 mg [acetaminophen 325 mg tablet (2 tabs)] Route: PO; js13 13:15 Follow up: Temp 99.5 Oral; Response: Temperature is decreased js13 12:10 Drug: Albuterol-Ipratropium 1 neb [ipratropium-albuterol 0.5 mg-3 mg(2.5 mg base)/3 mL cs15 nebulization soln (1 neb)] Route: Nebulizer; 12:35 Drug: Albuterol-Ipratropium 1 neb [ipratropium-albuterol 0.5 mg-3 mg(2.5 mg base)/3 mL cs15 nebulization soln (1 neb)] Route: Nebulizer; 12:55 Drug: Albuterol-Ipratropium 1 neb [ipratropium-albuterol 0.5 mg-3 mg(2.5 mg base)/3 mL cs15 nebulization soln (1 neb)] Route: Nebulizer; 13:29 Drug: cefTRIAXone 1 grams [ceftriaxone 1 gram solution for injection] Route: IVPB; js13 Infused Over: 30 mins; Site: left antecubital; 14:43 Follow up: IV Status: Completed infusion; IV Intake: 50ml js13 13:49 Drug: azithromycin 500 mg [azithromycin 500 mg intravenous solution] Route: IVPB; js13 Infused Over: 1 hrs; Site: left antecubital; 16:31 Follow up: IV Status: Completed infusion; IV Intake: 250ml js13 Intake: 14:43 IV: 50.00ml; Total: 50.00ml. js13 16:31 IV: 250.00ml; Total: 300.00ml. js13 RT: 12:30 ABG's drawn from right radial artery allens test done and positive pressure held for 5 cs15 minutes no bleeding noted pressure bandage applied specimen sent pt. tolerated well. Initial Med Neb Given as ordered. Respiratory: Respiratory effort is labored, Respiratory pattern is regular Breath sounds are clear bilaterally. 12:34 O2 via nasal cannula \T\ 2L/min. cs15 12:35 Respiratory: Breath sounds are clear bilaterally. cs15 Order Results: Lab Order: Basic Metabolic Profile; [facility] 09/23/16 11:26 Test: GLUCOSE, FASTING; Value: 128; Range: 83-110; Abnormal: Above high normal; Units: MG/DL; Status: F Test: BLOOD UREA NITROGEN; Value: 30; Range: 7-18; Abnormal: Above high normal; Units: MG/DL; Status: F Test: CREATININE FOR GFR; Value: 1.37; Range: 0.70-1.30; Abnormal: Above high normal; Units: MG/DL; Status: F Test: GLOMERULAR FILTRATION RATE; Value: 52.7; Range: >35; Status: F Test: SODIUM LEVEL; Value: 137; Range: 136-145; Units: MEQ/L; Status: F Test: POTASSIUM SERUM; Value: 3.8; Range: 3.5-5.1; Units: MEQ/L; Status: F Test: CHLORIDE LEVEL; Value: 99; Range: 98-107; Units: MEQ/L; Status: F Test: CARBON DIOXIDE LEVEL; Value: 30; Range: 21-32; Units: MEQ/L; Status: F Test: ANION GAP; Value: 8; Range: 8-16; Units: MEQ/L; Status: F Test: CALCIUM LEVEL; Value: 9.7; Range: 8.8-10.2; Units: MG/DL; Status: F Test Note: ; Units are mL/min/1.73 m2 Chronic Kidney Disease Staging per NKF: Stage I & II GFR >=60 Normal to Mildly Decreased Stage III GFR 30-59 Moderately Decreased Stage IV GFR 15-29 Severely Decreased Stage V GFR <15 Very Little GFR Left ESRD GFR <15 on RADIOLOGY RECEPTIONIST Lab Order: CBC with Diff; SPEC'M 09/23/16 11:26 Test: WHITE BLOOD COUNT; Value: 16.6; Range: 4.0-10.0; Abnormal: Above high normal; Units: K/mm3; Status: F Test: RED BLOOD COUNT; Value: 4.88; Range: 4.30-6.10; Units: M/mm3; Status: F Test: HEMOGLOBIN; Value: 15.5; Range: 14.0-18.0; Units: g/dl; Status: F Test: HEMATOCRIT; Value: 46.2; Range: 42.0-52.0; Units: %; Status: F Test: MEAN CORPUSCULAR VOLUME; Value: 94.8; Range: 80.0-96.0; Units: fl; Status: F Test: MEAN CORPUSCULAR HEMOGLOBIN; Value: 31.7; Range: 27.0-33.0; Units: pg; Status: F Test: MEAN CORPUSCULAR HGB CONC; Value: 33.4; Range: 32.0-36.5; Units: g/dl; Status: F Test: RED CELL DISTRIBUTION WIDTH; Value: 14.5; Range: 11.5-14.5; Units: %; Status: F Test: PLATELET COUNT, AUTOMATED; Value: 148; Range: 150-450; Abnormal: Below low normal; Units: k/mm3; Status: F Test: NEUTROPHILS %; Value: 92.7; Range: 36.0-66.0; Abnormal: Above high normal; Units: %; Status: F Test: LYMPH %; Value: 2.0; Range: 24.0-44.0; Abnormal: Below low normal; Units: %; Status: F Test: MONO %; Value: 3.7; Range: 0.0-5.0; Units: %; Status: F Test: EOS %; Value: 0.4; Range: 0.0-3.0; Units: %; Status: F Test: BASO %; Value: 0.6; Range: 0.0-1.0; Units: %; Status: F Test: LARGE UNSTAINED CELL %; Value: 0.5; Range: 0.0-4.0; Units: %; Status: F Test: NEUTROPHILS #; Value: 15.3; Range: 1.8-7.7; Abnormal: Above high normal; Units: K/mm3; Status: F Test: LYMPH #; Value: 0.4; Range: 1.5-4.5; Abnormal: Below low normal; Units: K/mm3; Status: F Test: MONO #; Value: 0.6; Range: 0.0-0.8; Units: K/mm3; Status: F Test: EOS #; Value: 0.1; Range: 0.0-0.50; Units: K/mm3; Status: F Test: BASO #; Value: 0.1; Range: 0.0-0.2; Units: K/mm3; Status: F Test: LARGE UNSTAINED CELL #; Value: 0.1; Range: 0.0-0.4; Units: K/mm3; Status: F Lab Order: -Arterial Blood Gas; SPEC'M 09/23/16 12:28 Test: ABG pH (ARTERIAL); Value: 7.448; Range: 7.350-7.450; Units: UNITS; Status: F Test: ABG PARTIAL PRESSURE CO2; Value: 36.0; Range: 35.0-45.0; Units: mmHg; Status: F Test: ABG PARTIAL PRESSURE O2; Value: 116.0; Range: 75.0-100.0; Abnormal: Above high normal; Units: mmHg; Status: F Test: ABG TOTAL CO2; Value: 25.5; Range: 23.0-31.0; Units: MEQ/L; Status: F Test: ABG HCO3; Value: 24.3; Range: 22.0-26.0; Units: MEQ/L; Status: F Test: ABG BASE EXCESS; Value: 0.8; Range: -2.0-2.0; Status: F Test: ABG STANDARD HCO3; Value: 25.2; Range: 22.0-26.0; Units: MEQ/L; Status: F Test: ABG O2 SATURATION; Value: 98.5; Range: 95.0-99.0; Units: %; Status: F Test: ABG DEVICE; Value: NASAL ASHLEY; Status: F Lab Order: THYROID STIMULATING HORMONE; SPEC'M 09/23/16 11:26 Test: THYROID STIMULATING HORMONE; Range: 0.358-3.740; Units: uIU/ML; Status: I Radiology Order: Chest, 2 View (pa\E\lat) Test: Chest, 2 View (pa\E\lat) REASON FOR EXAMINATION: Shortness of Breath; CHEST, TWO VIEWS:; ; HISTORY: Shortness of breath.; ; COMPARISON: 04/09/2014.; ; The lungs are hyperinflated. An increase in interstitial markings is present in; the lungs consistent with chronic interstitial fibrosis. Linear densities are; present in the left lower lobe consistent with atelectasis or scar. The heart is; normal in size. The pulmonary vasculature is normal in appearance. The bony; structure is intact.; ; IMPRESSION:; ; 1. Chronic interstitial fibrosis.; ; 2. Left lower lobe atelectasis or scar.; ; ; Signed by; Ozzy Farley MD 09/23/2016 12:01 P; Radiology Order: CT Chest Without Contrast Test: CT Chest Without Contrast REASON FOR EXAMINATION: COPD, dyspnea; Clinical: COPD and dyspnea.; ; Findings:; Diffuse moderate COPD and emphysematous changes are appreciated along with; basilar bronchiectasis. Superimposed subtle acute left lower lobe alveolar; infiltrate and trace right basilar atelectasis noted. No pleural effusion. No; pneumothorax. No obvious significant adenopathy. Atherosclerotic changes to the; thoracic aorta and coronary arteries noted without cardiomegaly or pericardial; effusion. Musculoskeletal structures demonstrate age-related degenerative; changes.; ; Impression:; Moderate COPD with early acute left lower lobe alveolar infiltrate and trace; right basilar atelectasis.; ; ; Signed by; Ede Boykin MD 09/23/2016 01:14 P; Outcome: 13:18 Decision to Hospitalize by Provider. pc 14:00 Patient left against medical advice. pc 15:47 Decision to Hospitalize by Provider. pc 16:32 Discharge Assessment: Patient awake, alert and oriented x 3. No cognitive and/or js13 functional deficits noted. Patient verbalized understanding of disposition instructions. patient administered narcotics - no. The following High Risk Discharge criteria are identified: None. Admitted to Med/Surg accompanied by tech, family with patient, via stretcher, with oxygen, with chart. Condition: stable. CT Study completed. Admission hand-off: Report Faxed. Property :Personal belongings accompany Pt. 17:14 Patient left the ED. js13 Signatures: Dispatcher [employer] EDMS Yony Mcconnell MD MD pc Michelson, Staci, RN RN srm Oneil, Rashmi, PSA PSA rb Garrett Brenner, Reg Reg lg Linh Ponce,RN RN js13 Jaz David Margaret RN RN mk4 Geovanna Devlin, YIELD ENGINEER YIELD ENGINEER ls3 Corey Mehta,RT RT cs15 Corrections: (The following items were deleted from the chart) 11:31 10:48 Home Meds: hydrochlorothiazide 25 mg Oral tab once daily; [facility] srm 11:31 10:48 Home Meds: levofloxacin 500 mg Oral tab once daily; [facility] srm 11:31 10:48 Home Meds: levothyroxine 50 mcg Oral cap once daily; 4 srm 11:38 11:31 Allergies: Levofloxacin (made legs swell); srm srm 11:49 10:48 Home Meds: doxycycline hyclate 100 mg Oral cap every 12 hours; 4 js13 Chart Complete MTDD
[2016-09-25 21:05] VITALS: BP 134/68
[2016-09-25] MEDS: SIMVASTATIN 10 MG TAB PO SCH (21:22)
[2016-09-26] MEDS: cefTRIAXone SOD 2 GM in D5W MINI-BAG PLUS 50 ML IV SCH (00:11)
[2016-09-26] MEDS: methylPREDNISolone INJ 125 MG/2 ML VIAL (J2930) IV SCH ×2 (00:11→12:23)
[2016-09-26] MEDS: LEVALBUTEROL 1.25 MG/0.5 ML CONCENTRATE NEB INH SCH ×6 (03:19→23:35)
[2016-09-26 05:45] VITALS: BP 138/72
[2016-09-26] MEDS: HEPARIN SOD (PORCINE) 5000 UNITS/ML VIAL SQ SCH ×3 (05:53→22:05)
[2016-09-26] MEDS: LEVOTHYROXINE 0.05 MG TAB (50 MCG) PO SCH (05:53)
[2016-09-26 06:33] LABS: EOS % 0.3 % (0.0-3.0); LARGE UNSTAINED CELL # 0.1 K/mm3 (0.0-0.4); LARGE UNSTAINED CELL % 0.9 % (0.0-4.0); LYMPH # 0.3 K/mm3 (1.5-4.5); LYMPH % 2.3 % (24.0-44.0); MEAN CORPUSCULAR HEMOGLOBIN 31.3 pg (27.0-33.0); MEAN CORPUSCULAR HGB CONC 32.8 g/dl (32.0-36.5); MEAN CORPUSCULAR VOLUME 95.3 fl (80.0-96.0); MONO # 0.4 K/mm3 (0.0-0.8); NEUTROPHILS # 11.4 K/mm3 (1.8-7.7); NEUTROPHILS % 93.5 % (36.0-66.0); PLATELET COUNT, AUTOMATED 204 k/mm3 (150-450); RED CELL DISTRIBUTION WIDTH 13.4 % (11.5-14.5); WHITE BLOOD COUNT 12.2 K/mm3 (4.0-10.0)
[2016-09-26 06:49] LABS: CALCIUM LEVEL 9.4 MG/DL (8.8-10.2); CREATININE FOR GFR 1.24 MG/DL (0.70-1.30); GLOMERULAR FILTRATION RATE 59.1 (>35); POTASSIUM SERUM 4.7 MEQ/L (3.5-5.1)
[2016-09-26] MEDS ORDERED: MOM 30ML SUSPENSION UDC PO PRN (08:15)
[2016-09-26] MEDS: VITAMIN D (CHOLECALCIFEROL) 400 INTERNATIONAL UNITS TAB PO SCH (09:15)
[2016-09-26] MEDS: LACTOBACILLUS ACIDOPHILUS CAP (BACID) PO SCH ×2 (09:15→18:00)
[2016-09-26] MEDS: DOCUSATE SODIUM 100 MG CAP PO SCH ×2 (09:15→21:00)
[2016-09-26] MEDS: guaiFENesin ER 600 MG TAB PO SCH ×2 (09:15→22:04)
[2016-09-26] MEDS: TAMSULOSIN 0.4 MG CAP PO SCH (09:15)
[2016-09-26] MEDS: ASPIRIN 81 MG ENTERIC TAB PO SCH (09:15)
[2016-09-26] MEDS: ACETAMINOPHEN TAB 650MG DOSE (2X325MG) PO PRN (10:07)
[2016-09-26] MEDS ORDERED: BISACODYL 10 MG SUPP PR PRN (10:15)
--- NOTE | 2016-09-26 11:05 | IPNPDOC ---
Assessment/Plan Date Seen The patient was seen on 09/26/16. Plan / VTE VTE Prophylaxis Ordered?: Yes Plan Plan Text 1. Acute on chronic hypoxic respiratory failure 2/2 LLL Pneumonia, COPD exacerbation Patient states his respiratory status has improved since admission Continue the patient on duo nebs, and titrate oxygen 88-92% Continue on Solu-Medrol Rocephin and azithromycin for antibiotic coverage Sputum culture pending We'll continue to monitor the patient's respiratory status 2. Left lower lobe community-acquired pneumonia Blood cultures negative thus far Sputum culture pending Continue on azithromycin and Rocephin 3. History of diastolic heart failure. Currently appears volume compensated Not on any diuretics at home Echocardiogram pending 4. Acute kidney injury resolved Serum creatinine back to within normal limits 5. Hypercholesterolemia. Continue statin 6. Pulmonary hypertension. Echocardiogram pending 7. Benign prostatic hypertrophy (BPH), stable. Continue on tamsulosin. Disposition Dispo as per PT recommendations Subjective Review of Systems CC/HPI The patient is a 86-year-old male admitted with a reason for visit of Left Lower Lobe Pneumonia. General: Denies: Chills, Night Sweats Constitutional: Denies: Chills, Fever Eyes: Denies: Pain, Vision change ENT: Denies: Ear Pain, Head Aches Skin: Denies: Lesions, Rash Pulmonary: Reports: Cough, Denies: Pleuritic Chest Pain Cardiovascular: Denies: Chest Pain, Palpitations Gastrointestinal: Denies: Diarrhea, Nausea, Vomiting Hematologic: Denies: Bleeding Excessively, Bruising Objective Physical Examination General Exam: Positive: Alert, Cooperative, No Acute Distress ENT Exam: Positive: Atraumatic, Mucous membr. moist/pink Chest Exam: Positive: Diminished, Negative: Rales, Wheezing Heart Exam: Positive: Normal S1, Normal S2, Rate Normal Abdomen Exam: Positive: Soft, Negative: Tenderness Extremity Exam: Negative: Edema, Tenderness Vital Signs/I&O Vital Signs Date Time Temp Pulse Resp B/P Pulse Ox O2 Delivery O2 Flow Rate FiO2 09/26/16 09:15 Nasal Cannula 2.0 09/26/16 05:45 97.5 85 18 138/72 92 I&O- Last 24 Hours up to 6 AM 09/26/16 05:59 Intake Total 650 ml Output Total 1275 ml Balance -625 ml Laboratory Data Labs 24H Laboratory Tests 2 09/26/16 05:58: Anion Gap 7L, White Blood Count 12.2H, Red Blood Count 4.68, Hemoglobin 14.6, Hematocrit 44.6, Mean Corpuscular Volume 95.3, Mean Corpuscular Hemoglobin 31.3 , Mean Corpuscular Hemoglobin Concent 32.8, Red Cell Distribution Width 13.4, Platelet Count 204, Neutrophils (%) (Auto) 93.5H, Lymphocytes (%) (Auto) 2.3L, Monocytes (%) (Auto) 3.0, Eosinophils (%) (Auto) 0.3, Basophils (%) (Auto) 0.0, Neutrophils # (Auto) 11.4H, Lymphocytes # (Auto) 0.3L, Monocytes # (Auto) 0.4, Eosinophils # (Auto) 0.0, Basophils # (Auto) 0.0, Blood Urea Nitrogen 35H, Creatinine 1.24, Sodium Level 142, Potassium Level 4.7, Chloride Level 105, Carbon Dioxide Level 30, Calcium Level 9.4, Glomerular Filtration Rate 59.1, Large Unclassified Cells # 0.1, Large Unclassified Cells % 0.9 CBC/BMP Laboratory Tests 09/26/16 05:58 Calcium Level 9.4, Red Blood Count 4.68, Mean Corpuscular Volume 95.3, Mean Corpuscular Hemoglobin 31.3, Mean Corpuscular Hemoglobin Concent 32.8, Red Cell Distribution Width 13.4, Neutrophils (%) (Auto) 93.5 H, Lymphocytes (%) (Auto) 2.3 L, Monocytes (%) (Auto) 3.0, Eosinophils (%) (Auto) 0.3, Basophils (%) (Auto ) 0.0, Neutrophils # (Auto) 11.4 H, Lymphocytes # (Auto) 0.3 L, Monocytes # ( Auto) 0.4, Eosinophils # (Auto) 0.0, Basophils # (Auto) 0.0 Microbiology Microbiology 09/23/16 Blood Culture - Preliminary, Resulted No Growth after 48 hours. All Specime... 09/23/16 Blood Culture - Preliminary, Resulted No Growth after 48 hours. All Specime... 09/25/16 Gram Stain - Final, Resulted 09/25/16 Sputum Culture - Preliminary, Resulted Yeast Like Organism 09/23/16 MRSA Screen - Final, Complete 09/23/16 Influenza Virus Type A Antigen - Final, Complete 09/23/16 Influenza Virus Type B Antigen - Final, Complete TANNER CORDOBA MD Sep 26, 2016 11:05
[2016-09-26] MEDS: AZITHROMYCIN 250 MG TAB PO SCH (12:23)
[2016-09-26 14:00] VITALS: BP 162/80
[2016-09-26 16:52] VITALS: BP 144/88
[2016-09-26 22:00] VITALS: BP 166/80
[2016-09-26] MEDS: SIMVASTATIN 10 MG TAB PO SCH (22:04)
[2016-09-26] MEDS ORDERED: CALCIUM CARBONATE 500 MG CHEW U/D PO PRN (23:15)
[2016-09-26 23:31] VITALS: BP 168/80
[2016-09-27] MEDS: cefTRIAXone SOD 2 GM in D5W MINI-BAG PLUS 50 ML IV SCH (00:58)
[2016-09-27] MEDS: methylPREDNISolone INJ 125 MG/2 ML VIAL (J2930) IV SCH (00:58)
[2016-09-27] MEDS: LEVALBUTEROL 1.25 MG/0.5 ML CONCENTRATE NEB INH SCH ×3 (03:51→11:14)
[2016-09-27] MEDS: LEVOTHYROXINE 0.05 MG TAB (50 MCG) PO SCH (05:56)
[2016-09-27] MEDS: HEPARIN SOD (PORCINE) 5000 UNITS/ML VIAL SQ SCH (05:56)
[2016-09-27 06:00] VITALS: BP 152/88
[2016-09-27 06:00] LABS: BASO % 0.1 % (0.0-1.0); EOS % 0.3 % (0.0-3.0); LARGE UNSTAINED CELL # 0.1 K/mm3 (0.0-0.4); LARGE UNSTAINED CELL % 0.9 % (0.0-4.0); LYMPH # 0.3 K/mm3 (1.5-4.5); LYMPH % 3.4 % (24.0-44.0); MEAN CORPUSCULAR HEMOGLOBIN 32.2 pg (27.0-33.0); MEAN CORPUSCULAR HGB CONC 33.7 g/dl (32.0-36.5); MEAN CORPUSCULAR VOLUME 95.6 fl (80.0-96.0); MONO # 0.4 K/mm3 (0.0-0.8); NEUTROPHILS # 8.2 K/mm3 (1.8-7.7); NEUTROPHILS % 91.4 % (36.0-66.0); PLATELET COUNT, AUTOMATED 180 k/mm3 (150-450); RED CELL DISTRIBUTION WIDTH 13.4 % (11.5-14.5); WHITE BLOOD COUNT 8.9 K/mm3 (4.0-10.0)
[2016-09-27 06:09] LABS: CREATININE FOR GFR 1.25 MG/DL (0.70-1.30); GLOMERULAR FILTRATION RATE 58.6 (>35); POTASSIUM SERUM 4.8 MEQ/L (3.5-5.1)
[2016-09-27] MEDS: DOCUSATE SODIUM 100 MG CAP PO SCH ×2 (09:00→09:34)
[2016-09-27] MEDS: guaiFENesin ER 600 MG TAB PO SCH (09:34)
[2016-09-27] MEDS: ASPIRIN 81 MG ENTERIC TAB PO SCH (09:34)
[2016-09-27] MEDS: LACTOBACILLUS ACIDOPHILUS CAP (BACID) PO SCH (09:34)
[2016-09-27] MEDS: VITAMIN D (CHOLECALCIFEROL) 400 INTERNATIONAL UNITS TAB PO SCH (09:34)
[2016-09-27] MEDS: TAMSULOSIN 0.4 MG CAP PO SCH (09:35)
[2016-09-27] MEDS: AZITHROMYCIN 250 MG TAB PO SCH (09:35)
[2016-09-27] MEDS ORDERED: DOXY-278 PO (11:35)
[2016-09-27] MEDS ORDERED: PRED10PA PO (11:35)
[2016-09-27] MEDS ORDERED: methylPREDNISolone INJ 40 MG/1 ML VIAL (J2920) IV SCH (12:00)
--- NOTE | 2016-09-27 13:51 | DS.PDOC ---
Discharge Summary General Date of Admission Sep 23, 2016 at 15:47 Date of Discharge Sep 27, 2016 at 12:44 Discharge Summary PROCEDURES PERFORMED DURING STAY: None. COMPLICATIONS/CHIEF COMPLAINT: Left Lower Lobe Pneumonia ADMISSION DIAGNOSES: 1. . Community-acquired pneumonia 2. COPD. Exacerbation 3. . DISCHARGE DIAGNOSES: 1. . Community-acquired pneumonia 2. . COPD exacerbation 3. . HISTORY OF PRESENT ILLNESS: 86-year-old male past medical history of COPD on 2 L of oxygen at home, congestive heart failure, dyslipidemia, BPH, hypertension presents to the ER with a chief complaint of worsening shortness of breath. At baseline, the patient reports that he is able to walk 100 to 150 feet with his rolling walker. However, the patient states that he has been having increased dyspnea, with cough productive of yellowish sputum over the last 1 week. He states that he has tried a 7 day trial of antibiotics and a tapering dose of prednisone as an outpatient however his respiratory status has not improved. In the ER, a CT scan of the chest revealed COPD with early acute left lower lobe alveolar infiltrate noted. The patient was started on Rocephin and azithromycin and given a dose of IV steroids and admitted to the hospital service for failure of outpatient antibiotic therapy. During his hospital stay the patient has been getting [id number] nebulizer treatments, and has been treated with IV antibiotics and steroids. His respiratory status has improved significantly over the last 48 hours and he has been transitioned to by mouth antibiotics and steroids. Physical therapy has cleared the patient for discharge home. At this time, we will discharge the patient with by mouth antibiotics and a tapering prednisone dose. As the patient follows with the [place] hospital system, we have written him physical prescription to get filled out at the pharmacy. DISCHARGE MEDICATIONS: Please see below. ALLERGIES: Please see below. PHYSICAL EXAMINATION ON DISCHARGE: VITAL SIGNS: Please see below. GENERAL: Awake, alert, oriented HEENT: Normocephalic, atraumatic NECK: No JVD CARDIOVASCULAR EXAMINATION: Regular rate, regular rhythm RESPIRATORY EXAMINATION: Diminished breath sounds bilaterally, with no active wheezing ABDOMINAL EXAMINATION: Soft, nontender, nondistended EXTREMITIES: No erythema, no tenderness LABORATORY DATA: Please see below. IMAGING: Clinical: COPD and dyspnea. Findings: Diffuse moderate COPD and emphysematous changes are appreciated along with basilar bronchiectasis. Superimposed subtle acute left lower lobe alveolar infiltrate and trace right basilar atelectasis noted. No pleural effusion. No pneumothorax. No obvious significant adenopathy. Atherosclerotic changes to the thoracic aorta and coronary arteries noted without cardiomegaly or pericardial effusion. Musculoskeletal structures demonstrate age-related degenerative changes. Impression: Moderate COPD with early acute left lower lobe alveolar infiltrate and trace right basilar atelectasis. VTE Prophylaxis ordered?: Yes DISCHARGE CONDITION: Medically stable DISPOSITION: 01 Home, Self-Care ACTIVITY: As tolerated DIET: 2 g low sodium diet ITEMS TO FOLLOWUP ON OUTPATIENT: 1. . Follow-up with PCP within 1-2 weeks 2. Patient instructed to finish tapering prednisone dose and then continue on 10 mg of prednisone daily as previously prescribed. TIME SPENT ON DISCHARGE: Greater than 30 minutes. Vital Signs/I&Os Vital Signs Date Time Temp Pulse Resp B/P Pulse Ox O2 Delivery O2 Flow Rate FiO2 09/27/16 09:00 Nasal Cannula 2.0 09/27/16 06:00 95.8 80 20 152/88 94 I&O- Last 24 Hours up to 6 AM 09/27/16 05:59 Intake Total 1160 ml Output Total 775 ml Balance 385 ml Laboratory Data Labs 24H Laboratory Tests 2 09/27/16 05:21: Anion Gap 6L, White Blood Count 8.9, Red Blood Count 4.63, Hemoglobin 14.9, Hematocrit 44.2, Mean Corpuscular Volume 95.6, Mean Corpuscular Hemoglobin 32.2 , Mean Corpuscular Hemoglobin Concent 33.7, Red Cell Distribution Width 13.4, Platelet Count 180, Neutrophils (%) (Auto) 91.4H, Lymphocytes (%) (Auto) 3.4L, Monocytes (%) (Auto) 4.0, Eosinophils (%) (Auto) 0.3, Basophils (%) (Auto) 0.1, Neutrophils # (Auto) 8.2H, Lymphocytes # (Auto) 0.3L, Monocytes # (Auto) 0.4, Eosinophils # (Auto) 0.0, Basophils # (Auto) 0.0, Blood Urea Nitrogen 35H, Creatinine 1.25, Sodium Level 145, Potassium Level 4.8, Chloride Level 108H, Carbon Dioxide Level 31, Calcium Level 9.0, Glomerular Filtration Rate 58.6, Large Unclassified Cells # 0.1, Large Unclassified Cells % 0.9 CBC/BMP Laboratory Tests 09/27/16 05:21 Calcium Level 9.0, Red Blood Count 4.63, Mean Corpuscular Volume 95.6, Mean Corpuscular Hemoglobin 32.2, Mean Corpuscular Hemoglobin Concent 33.7, Red Cell Distribution Width 13.4, Neutrophils (%) (Auto) 91.4 H, Lymphocytes (%) (Auto) 3.4 L, Monocytes (%) (Auto) 4.0, Eosinophils (%) (Auto) 0.3, Basophils (%) (Auto ) 0.1, Neutrophils # (Auto) 8.2 H, Lymphocytes # (Auto) 0.3 L, Monocytes # (Auto ) 0.4, Eosinophils # (Auto) 0.0, Basophils # (Auto) 0.0 Microbiology Microbiology 09/23/16 Blood Culture - Preliminary, Resulted No Growth after 72 hours. All specime... 09/23/16 Blood Culture - Preliminary, Resulted No Growth after 72 hours. All specime... 09/25/16 Gram Stain - Final, Complete 09/25/16 Sputum Culture - Final, Complete Yeast Like Organism 09/23/16 MRSA Screen - Final, Complete 09/23/16 Influenza Virus Type A Antigen - Final, Complete 09/23/16 Influenza Virus Type B Antigen - Final, Complete Medications Scheduled (Preservision Areds 2) 1 Cap Cap 1 CAP PO BID (Vitamin B-Complex) 1 Tab Tab 1 TAB PO DAILY (Doxycycline) 100 Mg Cap 100 MG PO BID Aspirin (Aspirin 81) 81 Mg Tab 81 MG PO DAILY Cholecalciferol (Vitamin D3) 400 Unit Tab 1,200 UNIT PO DAILY Docusate Sodium (Docusate Sodium) 100 Mg Cap 100 MG PO BID Levothyroxine Sodium (Synthroid) 50 Mcg Tab 50 MCG PO DAILY Prednisone (Prednisone) 10 Mg Tab 10 MG PO DAILY Prednisone (Prednisone) 10 Mg Julio 10 MG PO ASDIRECTED Simvastatin (Simvastatin) 10 Mg Tab 10 MG PO QHS Tamsulosin Hydrochloride (Flomax) 0.4 Mg Cap 0.4 MG PO DAILY Scheduled PRN Albuterol Sulfate (Ventolin Hfa) 200 Puff/8 Gm Aers 2 PUFF INH Q4H PRN PRN SHORTNESS OF BREATH Albuterol Sulfate (Albuterol Sulfate) 2.5 Mg/0.5 Ml Neb 2.5 MG INH Q4H PRN PRN SHORTNESS OF BREATH Dextran/Hydrox.prop.meth.cell (Tears Naturale PF 0.1-0.3 %) 1 Drop/Bottle Soln 1 DROP OU BID PRN PRN DRY EYES Guaifenesin (Guaifenesin) 200 Mg Tab 200 MG PO QID PRN PRN COUGH Ipratropium [place] (Ipratropium [place]) 0.5 Mg/2.5 Ml Soln 0.5 MG INH Q6H PRN PRN SHORTNESS OF BREATH Ipratropium [place] (Atrovent Hfa) 200 Puff/12.9 Gm Aers 2 PUFF INH Q6H PRN PRN SHORTNESS OF BREATH Senna (Senna Lax) 8.6 Mg Tab 2 TAB PO QHS PRN PRN CONSTIPATION Sildenafil Citrate (Viagra) 100 Mg Tab 100 MG PO PRN PRN PRN ERECTILE DYSFUNCTION Allergies Coded Allergies: Ciprofloxacin (Verified Allergy, Severe, SWELLING, 01/13/13) Penicillins (Verified Allergy, swelling/itching, 01/13/13) Levofloxacin (Verified Adverse Reaction, tendon pain, 01/13/13) TANNER CORDOBA MD Sep 27, 2016 13:51
[2016-09-28 00:06] LABS: ORGANISM ID Not indicated. (.); SPECIMEN SOURCE Urine (.)
== END 2016-09-27 12:44 | disposition home or self-care (01) | DRG 193 ==
LOC: M ED 10:24 → M ED INP 15:47 → M MSPAV 17:18
PROVIDERS: ADMIT General Practice; ATTEND Internal Medicine
DX: J15.9 Unspecified bacterial pneumonia (principal); J96.21 Acute and chronic respiratory failure with hypoxia; J44.1 Chronic obstructive pulmonary disease with (acute) exacerbation; N17.9 Acute kidney failure, unspecified; I50.32 Chronic diastolic (congestive) heart failure; E78.00 Pure hypercholesterolemia, unspecified; E78.5 Hyperlipidemia, unspecified; N40.0 Benign prostatic hyperplasia without lower urinary tract symptoms; I27.2 Other secondary pulmonary hypertension; I11.0 Hypertensive heart disease with heart failure; E03.9 Hypothyroidism, unspecified; Z99.81 Dependence on supplemental oxygen; Z79.52 Long term (current) use of systemic steroids; Z79.82 Long term (current) use of aspirin; Z79.899 Other long term (current) drug therapy; Z87.891 Personal history of nicotine dependence

== ENCOUNTER 2017-06-21 12:37 | Inpatient (IN) | payer MEDICARE, OTHER ==
[~2017-06-21] VITALS: Ht 172.7 cm; Wt 71.2 kg
[~2017-06-21 12:37] MED LIST changes: +ALB2.5NEB INH; +ALBU17IN INH; +ASPI1TAB PO; +DOCU100C16 PO; +DOXY-278 PO; +FLOM5CAP PO; +GUAI200T6 PO; +IPRAINH INH; +PRESCAP6 PO; +SENN1TAB10 PO; +SIMV10TA2 PO; +SYNT50TA PO; +TEAR1SOL3 OU; +VIAG100T PO; +VITA400T PO; +VITATAB73 PO
[2017-06-21] MEDS ORDERED: SIMV20TA2 PO (12:53)
[2017-06-21] MEDS ORDERED: FURO40TA2 PO (12:53)
[2017-06-21] MEDS ORDERED: LEVO75TA4 PO (12:53)
[2017-06-21] MEDS ORDERED: IPRATROPIUM 0.5MG/ALBUTEROL 2.5MG INH SOL UD 3ML (DUONEB)(J7620) NEB ONE ×2 (13:30→17:30)
[2017-06-21] MEDS ORDERED: PRED20TA PO (14:00)
[2017-06-21 14:03] LABS: ABG BASE EXCESS 5.2 (-2.0-2.0); ABG HCO3 28.7 MEQ/L (22.0-26.0); ABG PARTIAL PRESSURE CO2 38.4 mmHg (35.0-45.0); ABG PARTIAL PRESSURE O2 91.6 mmHg (75.0-100.0); ABG STANDARD HCO3 29.1 MEQ/L (22.0-26.0); ABG TOTAL CO2 29.9 MEQ/L (23.0-31.0); ABG pH (ARTERIAL) 7.491 UNITS (7.350-7.450)
[2017-06-21] MEDS ORDERED: STIO1AER INH (14:09)
[2017-06-21 14:31] LABS: BASO % 0.3 % (0.0-1.0); EOS % 0.1 % (0.0-3.0); IMMATURE GRANULOCYTE % 1.9 % (0-0); LYMPH # 0.6 10^3/uL (1.5-4.5); LYMPH % 4.3 % (24.0-44.0); MEAN CORPUSCULAR HEMOGLOBIN 32.1 pg (27.0-33.0); MEAN CORPUSCULAR HGB CONC 33.9 g/dl (32.0-36.5); MEAN CORPUSCULAR VOLUME 94.7 fl (80.0-96.0); MONO # 0.6 10^3/uL (0.0-0.8); NEUTROPHILS # 12.4 10^3/uL (1.8-7.7); NEUTROPHILS % 89.4 % (36.0-66.0); PLATELET COUNT, AUTOMATED 216 10^3/uL (150-450); RED CELL DISTRIBUTION WIDTH 13.5 % (11.5-14.5); WHITE BLOOD COUNT 13.9 10^3/uL (4.0-10.0)
[2017-06-21 14:40] LABS: INR 0.97
[2017-06-21 14:42] LABS: MICROSCOPIC INDICATED? YES (NO)
[2017-06-21 15:10] LABS: ALBUMIN 3.2 GM/DL (3.2-5.2); ALBUMIN/GLOBULIN RATIO 1.07 (1.00-1.93); ALKALINE PHOSPHATASE 55 U/L (45-117); ALT/SGPT 28 U/L (12-78); ANION GAP 7 MEQ/L (8-16); AST/SGOT 15 U/L (15-37); BILIRUBIN,DIRECT 0.2 MG/DL (0.0-0.2); BILIRUBIN,TOTAL 0.8 MG/DL (0.2-1.0); BLOOD UREA NITROGEN 20 MG/DL (7-18); CALCIUM LEVEL 9.4 MG/DL (8.8-10.2); CARBON DIOXIDE LEVEL 35 MEQ/L (21-32); CHLORIDE LEVEL 95 MEQ/L (98-107); CREATININE FOR GFR 1.18 MG/DL (0.70-1.30); GLOMERULAR FILTRATION RATE > 60.0 (>35); GLUCOSE, FASTING 140 MG/DL (83-110); POTASSIUM SERUM 3.5 MEQ/L (3.5-5.1); SODIUM LEVEL 137 MEQ/L (136-145); TOTAL PROTEIN 6.2 GM/DL (6.4-8.2)
[2017-06-21] MEDS ORDERED: hydrALAZINE INJ 20 MG/ML VIAL IV ONE (15:15)
[2017-06-21 15:39] VITALS: BP 190/78
[2017-06-21] MEDS ORDERED: ISOVUE-370 76% 100ML VIAL (Q9967) As Ordered ONE (15:41)
--- NOTE | 2017-06-21 16:03 | REP ---
CHEST, TWO VIEWS: HISTORY: Cough. Comparison 09/23/2016. The lungs are hyperinflated. An increase in interstitial markings is present in the lungs. Linear densities are present in the left lower lobe consistent with scar. There is superimposed atelectasis. The heart is normal in size. The pulmonary vasculature is normal in appearance. The bony structure is intact. IMPRESSION: 1. Chronic interstitial fibrosis. 2. Left lower lobe scarring with superimposed atelectasis. Signed by Ozzy Farley MD 06/21/2017 04:18 P
[2017-06-21] MEDS ORDERED: AZITHROMYCIN INJ 500 MG, VIAL MATE ADAPTER 1 EACH in D5W 250 ML IV ONE (16:45)
[2017-06-21] MEDS ORDERED: cefTRIAXone SOD 1 GM in D5W 50 ML IV ONE (16:45)
[2017-06-21] MEDS: NS 1,000 ML IV SCH ×2 (16:57→22:22)
--- NOTE | 2017-06-21 16:58 | REP ---
CT pulmonary angiogram: With IV contrast. History: Shortness of breath. Elevated D-dimer. Comparison studies: Comparison CT study September 23, 2016 without contrast exam. Contrast dose: 100 cc's of Isovue [address] technique: Helical scanning is acquired and overlapping 1.5 mm and contiguous 3 mm axial images are reformatted. In addition, a 3-D work station is deployed to generate thick slab maximum intensity projection images in sagittal and coronal imaging projections. CT pulmonary angiographic findings: There is good opacification of the pulmonary arterial tree and there is no CT evidence of pulmonary embolism. The thoracic aorta enhances homogeneously. Considerable vascular calcification is seen. No aneurysm is noted. No pleural or pericardial effusion is seen. There is advanced emphysematous change in the upper lobes bilaterally. This is consistent with COPD. There is left lower lobe fairly dense consolidation consistent with pneumonia. This is new when compared with the prior study. There are also some linear fibrotic changes in the lower lobes bilaterally, which are unchanged. No adrenal lesion is seen on either side. There is a small cyst in the upper pole of the left kidney. There is a tiny cyst in the right lobe of the liver. The visualized upper abdominal structures are otherwise unremarkable. Impression: 1. Left lower lobe pneumonia. 2. No CT evidence of pulmonary embolus. 3. Advanced COPD and upper lobe emphysematous change. Bibasilar linear fibrosis. Signed by Rudy Thakkar MD 06/21/2017 05:33 P
[2017-06-21] MEDS ORDERED: hydroCHLOROthiazide 25 MG TAB PO ONE (17:30)
[2017-06-21] MEDS ORDERED: SENNA 8.6 MG TAB (SENOKOT) PO PRN (18:15)
[2017-06-21] MEDS ORDERED: ACETAMINOPHEN TAB 650MG DOSE (2X325MG) PO PRN (18:15)
[2017-06-21] MEDS ORDERED: TEARS NATURALE FREE OPHTH DROP VIAL OU PRN (18:15)
[2017-06-21] MEDS ORDERED: IPRATROPIUM 0.5MG/ALBUTEROL 2.5MG INH SOL UD 3ML (DUONEB)(J7620) NEB PRN (18:15)
[2017-06-21] MEDS ORDERED: NS 1,000 ML IV ONE (19:24)
[2017-06-21] MEDS: IPRATROPIUM 0.5MG/ALBUTEROL 2.5MG INH SOL UD 3ML (DUONEB)(J7620) NEB SCH ×2 (20:00→23:51)
--- NOTE | 2017-06-21 20:13 | HPEPDOC ---
General Date of Admission Jun 21, 2017 at 18:30 Other Providers Primary care physician: Dandre ANGELA Pulmonology: [place] Attending Physician: JEANNETTE HUGHES MD Chief Complaint The patient is a 87-year-old male admitted with a reason for visit of Copd Exacerbation, Lll Pneumonia. Source: Patient, Family Exam Limitations: No limitations History of Present Illness Mr. Bonilla is an 87-year-old male who presents to the emergency department with progressive worsening fatigue, weakness, and shortness of breath. He states that he was seen and evaluated in an urgent care approximately 2 weeks ago and was treated with a 10 day course of doxycycline with which she was compliant, he was also increased to 60 mg a day of prednisone from his usual baseline of 20 mg. He states he has been down to 10 mg a day in the past, but recently has been on 20 mg. He has not shown any improvement since that time, as a matter fact he had a cough with productive sputum starting approximately 3 days ago. Then, this morning he was just so profoundly fatigued that he did not feel he was able to walk, therefore he presented to the emergency department. Home Medications Scheduled (Preservision Areds 2) 1 Cap Cap, 1 CAP PO BID, (Reported) Aspirin (Aspirin 81) 81 Mg Tab, 81 MG PO DAILY, (Reported) Cholecalciferol (Vitamin D3) 400 Unit Tab, 400 UNIT PO BID, (Reported) Docusate Sodium (Docusate Sodium) 100 Mg Cap, 100 MG PO BID, (Reported) Furosemide (Furosemide) 40 Mg Tab, 40 MG PO DAILY, (Reported) Levothyroxine Sodium (Synthroid) 75 Mcg Tab, 75 MCG PO DAILY, (Reported) Prednisone (Prednisone) 20 Mg Tab, 20 MG PO DAILY, (Reported) Simvastatin (Simvastatin) 20 Mg Tab, 20 MG PO DAILY, (Reported) Tamsulosin Hydrochloride (Flomax) 0.4 Mg Cap, 0.4 MG PO QHS, (Reported) Scheduled PRN Albuterol Sulfate (Ventolin Hfa) 200 Puff/8 Gm Aers, 2 PUFF INH Q4H PRN for SHORTNESS OF BREATH, (Reported) Albuterol Sulfate (Albuterol Sulfate) 2.5 Mg/0.5 Ml Neb, 2.5 MG INH Q4H PRN for SHORTNESS OF BREATH, (Reported) Dextran/Hydrox.prop.meth.cell (Tears Naturale PF 0.1-0.3 %) 1 Drop/Bottle Soln, 1 DROP OU BID PRN for DRY EYES, (Reported) Guaifenesin (Guaifenesin) 200 Mg Tab, 200 MG PO QID PRN for COUGH, (Reported) Ipratropium [place] (Ipratropium [place]) 0.5 Mg/2.5 Ml Soln, 0.5 MG INH Q6H PRN for SHORTNESS OF BREATH, (Reported) Ipratropium [place] (Atrovent Hfa) 200 Puff/12.9 Gm Aers, 2 PUFF INH Q6H PRN for SHORTNESS OF BREATH, (Reported) Senna (Senna Lax) 8.6 Mg Tab, 2 TAB PO BID PRN for CONSTIPATION, (Reported) Miscellaneous Medications (Stiolto Respimat 2.5-2.5 Mcg/Act) 1 Aer Aer, 2 PUFFS INH, (Reported) Allergies Coded Allergies: Ciprofloxacin (Verified Allergy, Severe, SWELLING, 01/13/13) Penicillins (Verified Allergy, swelling/itching, 01/13/13) Levofloxacin (Verified Adverse Reaction, tendon pain, 01/13/13) Past Medical History Medical History COPD Chronic steroid use Chronic hypoxic respiratory failure requiring 2 L of home oxygen He often is found to be hypotensive Diastolic congestive heart failure Benign prostatic hypertrophy Surgical History Bilateral cataracts Tube placement in the right ear or hearing issues Cyst removed from his back Skin cancer off of his back and nose Hemorrhoid surgery Tonsillectomy as a child Family History One brother from metastatic prostate cancer. Another brother from what appears to be a skin cancer. His mother and father suffered from hypertension. 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 Review of Symptoms Constitutional: Reports: Malaise, Weakness, Fatigue, Denies: Chills, Fever, Night Sweats Eyes: Denies: Pain, Vision change ENT: Denies: Head Aches, Ear Pain, Dysphagia Skin: Denies: Rash, Lesions, Breakdown Pulmonary: Reports: Dyspnea, Cough, Denies: Pleuritic Chest Pain Cardiovascular: Reports: Lt Headedness, Denies: Chest Pain, Palpitations, Orthopnea, Paroxysmal Noc. Dyspnea Gastrointestinal: Reports: Nausea, Constipation (chronic), Denies: Vomiting, Abdominal Pain, Diarrhea Genitourinary: Reports: Retention, Denies: Dysuria, Frequency, Incontinence Hematologic: Denies: Bruising, Bleeding Excessively Neurological: Denies: Weakness, Numbness, Change in speech, Confusion Psych: Reports: Mood Normal, Denies: Depression, Memory Issues Physical Examination General Exam: Positive: Alert, Cooperative, Moderate Distress Eye Exam: Positive: PERRLA, Conjunctiva & lids normal, EOMI, Negative: Sclera icteric ENT Exam: Positive: Atraumatic, Mucous membr. moist/pink, Pharynx Normal, Other ENT (he has dentures) Neck Exam: Positive: Supple, Negative: JVD, thyromegaly Chest Exam: Positive: Diminished (throughout) Heart Exam: Positive: Rate Normal, Regular Rhythm, Other (distant heart sounds) Telemetry: Positive: No significant arrhythmia Abdomen Exam: Positive: Normal bowel sounds, Soft, Negative: Tenderness, Hepatospenomegaly Extremity Exam: Positive: Normal pulses, Negative: Clubbing, Cyanosis, Edema Skin Exam: Positive: Nl turgor and temperature, Negative: Breakdown, Lesion Neuro Exam: Positive: Normal Speech, Cranial Nerves 3-12 NL Psych Exam: Positive: Mental status NL, Mood NL, Oriented x 3 Vital Signs Vital Signs Date Time Temp Pulse Resp B/P (MAP) Pulse Ox O2 Delivery O2 Flow Rate FiO2 06/21/17 19:30 147/72 (97) 06/21/17 19:07 86 06/21/17 18:37 99 06/21/17 18:22 97.3 18 Nasal Cannula 3.0 Laboratory Data Labs 24H Laboratory Tests 2 06/21/17 13:52: Blood Gas Bicarbonate Standard 29.1H, Arterial Blood pH 7.491H, Arterial Blood Partial Pressure CO2 38.4, Arterial Blood Partial Pressure O2 91.6, Arterial Blood Total CO2 29.9, Arterial Blood HCO3 28.7H, Arterial Blood Base Excess 5.2H , Arterial Blood Oxygen Saturation 97.4 06/21/17 14:05: Prothrombin Time 13.0, Prothromb Time International Ratio 0.97, D-Dimer, Quantitative 1057.5H, Anion Gap 7L, Glomerular Filtration Rate > 60.0, Calcium Level 9.4, Aspartate Amino Transf (AST/SGOT) 15, Alanine Aminotransferase (ALT/ SGPT) 28, Alkaline Phosphatase 55, Total Bilirubin 0.8, Direct Bilirubin 0.2, Total Creatine Kinase 25L, Creatine Kinase MB 1.2, Creatine Kinase MB Relative Index 4.80H, Troponin I < 0.02, RD-Elo-C-Type Natriuretic Peptide 1500H, Total Protein 6.2L, Albumin 3.2, Albumin/Globulin Ratio 1.07 06/21/17 14:06: Immature Granulocyte % (Auto) 1.9H, White Blood Count 13.9H, Red Blood Count 5.05, Hemoglobin 16.2, Hematocrit 47.8, Mean Corpuscular Volume 94.7, Mean Corpuscular Hemoglobin 32.1, Mean Corpuscular Hemoglobin Concent 33.9, Red Cell Distribution Width 13.5, Platelet Count 216, Neutrophils (%) (Auto) 89.4H, Lymphocytes (%) (Auto) 4.3L, Monocytes (%) (Auto) 4.0, Eosinophils (%) (Auto) 0.1, Basophils (%) (Auto) 0.3, Neutrophils # (Auto) 12.4H, Lymphocytes # (Auto) 0.6L, Monocytes # (Auto) 0.6, Eosinophils # (Auto) 0.0, Basophils # (Auto) 0.0, Immature Granulocyte # (Auto) 0.3H, Nucleated Red Blood Cells % (auto) 0.0, Urine Appearance CLEAR, Urine Color STRAW, Urine pH 7.0, Urine Specific [place] 1.006, Urine Protein NEGATIVE, Urine Glucose (UA) NEGATIVE, Urine Ketones NEGATIVE, Urine Urobilinogen 0.2, Urine Bilirubin NEGATIVE, Urine Leukocyte Esterase NEGATIVE, Urine Blood NEGATIVE, Urine Nitrite NEGATIVE, Urine WBC (Auto ) , Urine RBC (Auto) , Urine Hyaline Casts (Auto) , Urine Bacteria (Auto) , Urine Squamous Epithelial Cells , Urine Mucus (Auto) , Urine Sperm (Auto) , Lactic Acid Level 2.5*H 06/21/17 18:34: Lactic Acid Followup at 4 Hours 2.4*H CBC/BMP Laboratory Tests 06/21/17 14:05 06/21/17 14:06 Red Blood Count 5.05, Mean Corpuscular Volume 94.7, Mean Corpuscular Hemoglobin 32.1, Mean Corpuscular Hemoglobin Concent 33.9, Red Cell Distribution Width 13.5 , Neutrophils (%) (Auto) 89.4 H, Lymphocytes (%) (Auto) 4.3 L, Monocytes (%) ( Auto) 4.0, Eosinophils (%) (Auto) 0.1, Basophils (%) (Auto) 0.3, Neutrophils # ( Auto) 12.4 H, Lymphocytes # (Auto) 0.6 L, Monocytes # (Auto) 0.6, Eosinophils # (Auto) 0.0, Basophils # (Auto) 0.0 Microbiology Microbiology 06/21/17 Blood Culture, Received Pending 06/21/17 Blood Culture, Received Pending Problems (1) Left lower lobe pneumonia Status: Acute (2) COPD exacerbation Status: Acute (3) Prerenal azotemia Status: Acute (4) Diastolic congestive heart failure Status: Chronic (5) Chronic respiratory failure with hypoxia Status: Chronic (6) Chronic steroid use Status: Chronic (7) Idiopathic chronic hypotension Status: Chronic (8) Benign prostatic hyperplasia Status: Chronic Plan / VTE VTE Prophylaxis Ordered?: Yes (Lovenox) Plan Plan Will admit the patient to [facility] floor. It appears that his changes are slightly worse at the left pleural angle on chest x-ray, and pneumonia is noted on CT as well. We will treat his left lower lobe pneumonia empirically with Rocephin and azithromycin. He also appears to be having a concurrent COPD exacerbation, and he is on chronic steroids, therefore we will provide him with regularly scheduled IV Solu-Medrol, and then we'll also give him scheduled and PRN duo nebs while continuing him on his usual home regimen of inhaled corticosteroids. In the emergency department he was noted to have a prerenal azotemia as well as a lactic acidosis, therefore he was given a 500 mL bolus of normal saline, his repeat lactic acid was not much improved, therefore an additional 500 mL bolus has been ordered, and we will hold his home dose of furosemide for now. Otherwise, we will continue the remainder of his home medications for his chronic conditions. GME ATTESTATION GME ATTESTATION My preceptor for this patient encounter was physically present in the building during the encounter and was fully available. As needed, all aspects of the patient interview, examination, medical decision making process, and medical care plan development were reviewed and approved by the preceptor. Preceptor is aware and concurs with the plan as stated in the body of this note and will attest to such by his/her cosignature. ATTENDING NOTE I, Jeannette Hughes, have both independently examined this patient as well as reviewed the documentation. I have discussed in detail with the resident the findings and plan of treatment as documented in the residents documentation. I will continue to follow the patient and offer further guidance to the patients care as necessary during this hospital stay. KARON GOSS DO Jun 21, 2017 20:13 JEANNETTE HUGHES MD Jun 22, 2017 12:05
[2017-06-21] MEDS: DOCUSATE SODIUM 100 MG CAP PO SCH ×2 (21:00→22:44)
[2017-06-21] MEDS ORDERED: ENTER DRUG NAME HERE (PATIENT'S OWN MED) PO SCH (21:00)
[2017-06-21] MEDS: ADVAIR HFA 115/21MCG INHALER INH SCH (21:07)
[2017-06-21 21:34] VITALS: BP 148/73
[2017-06-21] MEDS: SIMVASTATIN 20 MG TAB PO SCH (22:44)
[2017-06-21] MEDS: methylPREDNISolone INJ 125 MG/2 ML VIAL (J2930) IV SCH (22:44)
[2017-06-21] MEDS: TAMSULOSIN 0.4 MG CAP PO SCH (22:44)
[2017-06-22] MEDS: OCUVITE 1 TAB PO SCH ×3 (00:29→20:48)
[2017-06-22] MEDS: VITAMIN D (CHOLECALCIFEROL) 400 INTERNATIONAL UNITS TAB PO SCH ×3 (00:29→20:48)
[2017-06-22] MEDS: IPRATROPIUM 0.5MG/ALBUTEROL 2.5MG INH SOL UD 3ML (DUONEB)(J7620) NEB SCH ×6 (03:46→23:35)
[2017-06-22] MEDS ORDERED: SLF 3 ML SYR IV PRN (05:15)
[2017-06-22] MEDS: LEVOTHYROXINE 75MCG TABLET (0.075MG) PO SCH (05:18)
[2017-06-22] MEDS: methylPREDNISolone INJ 125 MG/2 ML VIAL (J2930) IV SCH ×3 (05:18→20:48)
[2017-06-22] MEDS: SLF 3 ML SYR IV SCH ×3 (05:19→21:36)
[2017-06-22 05:23] VITALS: BP 153/71
[2017-06-22] MEDS: ADVAIR HFA 115/21MCG INHALER INH SCH ×2 (07:41→21:01)
[2017-06-22 07:52] VITALS: O2SAT 98
[2017-06-22 07:57] LABS: MEAN CORPUSCULAR HEMOGLOBIN 31.9 pg (27.0-33.0); MEAN CORPUSCULAR HGB CONC 33.2 g/dl (32.0-36.5); MEAN CORPUSCULAR VOLUME 96.1 fl (80.0-96.0); RED CELL DISTRIBUTION WIDTH 13.8 % (11.5-14.5); WHITE BLOOD COUNT 9.5 10^3/uL (4.0-10.0)
[2017-06-22 08:14] LABS: CALCIUM LEVEL 9.5 MG/DL (8.8-10.2); CREATININE FOR GFR 1.27 MG/DL (0.70-1.30); GLOMERULAR FILTRATION RATE 57.4 (>35); POTASSIUM SERUM 3.9 MEQ/L (3.5-5.1)
--- NOTE | 2017-06-22 08:52 | ECGEPIP ---
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
[2017-06-22] MEDS ORDERED: FUROSEMIDE 40 MG TAB PO SCH (09:00)
[2017-06-22] MEDS: ASPIRIN 81 MG ENTERIC TAB PO SCH (09:30)
[2017-06-22] MEDS: ENOXAPARIN 40 MG/0.4 ML SYRINGE (J1650) SC SCH (09:30)
[2017-06-22] MEDS: AZITHROMYCIN 250 MG TAB PO SCH (09:30)
[2017-06-22] MEDS ORDERED: SODIUM CHLORIDE 0.9% 1000 ML IV ONE (11:15)
[2017-06-22 14:00] VITALS: BP 149/75
[2017-06-22] MEDS: cefTRIAXone SOD 1 GM in D5W 50 ML IV SCH (18:21)
--- NOTE | 2017-06-22 19:48 | IPNPDOC ---
Subjective Date Seen The patient was seen on 06/22/17. Subjective Chief Complaint/HPI The patient is a 87-year-old male admitted with a reason for visit of Copd Exacerbation, Lll Pneumonia. Events since last encounter The patient states that his symptoms are largely unchanged since last night, which is not wholly unexpected as he did arrive late in the evening. He continues to suffer from extreme fatigue and shortness of breath, even has difficulty taking the 1-2 steps into a bedside commode. General: Reports: Fatigue, Malaise, Normal Appetite Constitutional: Denies: Chills, Fever, Night Sweats ENT: Denies: Head Aches, Sore Throat Skin: Denies: Rash, Lesions, Bruising Pulmonary: Reports: Dyspnea, Cough (with some sputum) Cardiovascular: Denies: Chest Pain, Palpitations Gastrointestinal: Denies: Nausea, Vomiting, Abdominal Pain, Diarrhea, Constipation Neurological: Reports: Weakness Objective Physical Examination General Exam: Positive: Alert, Cooperative, Mild Distress Eye Exam: Positive: PERRLA, Conjunctiva & lids normal, EOMI, Negative: Sclera icteric ENT Exam: Positive: Atraumatic, Mucous membr. moist/pink, Pharynx Normal, Other ENT (he has dentures) Neck Exam: Positive: Supple, Negative: JVD, thyromegaly Chest Exam: Positive: Diminished (throughout, although it doesn't appear that he has some improved air movement in the superior lung poon) Heart Exam: Positive: Rate Normal, Regular Rhythm, Other (distant heart sounds) Abdomen Exam: Positive: Normal bowel sounds, Soft, Negative: Tenderness, Hepatospenomegaly Extremity Exam: Positive: Normal pulses, Negative: Clubbing, Cyanosis, Edema Skin Exam: Positive: Nl turgor and temperature, Negative: Breakdown, Lesion Neuro Exam: Positive: Normal Speech Psych Exam: Positive: Mental status NL, Mood NL, Oriented x 3, Negative: Anxiety Assessment /Plan Problems (1) Left lower lobe pneumonia Status: Acute Problem Text: Continue with empiric antibiotics of Rocephin and azithromycin. Respiratory panel as well as sputum culture are still pending. (2) COPD exacerbation Status: Acute Problem Text: Continue with Solu-Medrol and oxygen supplementation as needed to maintain his saturations between 88-92%. Continue duonebs. Continue home advair (3) Prerenal azotemia Status: Acute Problem Text: Improved (4) Diastolic congestive heart failure Status: Chronic (5) Chronic respiratory failure with hypoxia Status: Chronic Problem Text: This is likely contributing to a persistently elevated lactic acid; uses 2L O2 chronically (6) Chronic steroid use Status: Chronic (7) Idiopathic chronic hypotension Status: Chronic Problem Text: He is actually and slightly on the hypertensive side, although I believe that this may be secondary to his respiratory distress, I would use caution in the administration of antihypertensives given his history of chronic hypotension (8) Benign prostatic hyperplasia Status: Chronic Problem Text: continue home flomax (9) Hypothyroid Status: Chronic Problem Text: continue home synthroid Plan/VTE VTE Prophylaxis Ordered?: Yes (Lovenox) VS, I&O, 24H, Fishbone Vital Signs/I&O Vital Signs Date Time Temp Pulse Resp B/P (MAP) Pulse Ox O2 Delivery O2 Flow Rate FiO2 06/22/17 14:00 98.2 88 20 149/75 (99) 98 Nasal Cannula 2.0 I&O- Last 24 Hours up to 6 AM 06/23/17 06:00 Intake Total 1480 ml Output Total 150 ml Balance 1330 ml Laboratory Data 24H LABS Laboratory Tests 2 06/22/17 07:28: Anion Gap 11, Glomerular Filtration Rate 57.4, Blood Urea Nitrogen 18, Creatinine 1.27, Sodium Level 139, Potassium Level 3.9, Chloride Level 98, Carbon Dioxide Level 30, Calcium Level 9.5 06/22/17 10:08: Lactic Acid Level 5.1*H 06/22/17 14:39: Lactic Acid Followup at 4 Hours 2.1*H CBC/BMP Laboratory Tests 06/22/17 07:28 Red Blood Count 4.92, Mean Corpuscular Volume 96.1 H, Mean Corpuscular Hemoglobin 31.9, Mean Corpuscular Hemoglobin Concent 33.2, Red Cell Distribution Width 13.8, Calcium Level 9.5 Microbiology Microbiology 06/21/17 Blood Culture - Preliminary, Resulted No growth after 24 hours . All specim... 06/21/17 Blood Culture - Preliminary, Resulted No growth after 24 hours . All specim... Attending Note Attending Note I have seen and examined the above patient and agree with the above documentation. KARON GOSS DO Jun 22, 2017 19:48 ROSA ISELA GALLO Jun 23, 2017 18:12
[2017-06-22] MEDS: SIMVASTATIN 20 MG TAB PO SCH (20:48)
[2017-06-22] MEDS: DOCUSATE SODIUM 100 MG CAP PO SCH (20:48)
[2017-06-22] MEDS: TAMSULOSIN 0.4 MG CAP PO SCH (20:48)
[2017-06-22 22:05] VITALS: BP 143/67
[2017-06-23] MEDS: IPRATROPIUM 0.5MG/ALBUTEROL 2.5MG INH SOL UD 3ML (DUONEB)(J7620) NEB SCH ×8 (00:34→22:19)
[2017-06-23] MEDS: SLF 3 ML SYR IV SCH ×3 (05:28→21:45)
[2017-06-23] MEDS: LEVOTHYROXINE 75MCG TABLET (0.075MG) PO SCH (05:28)
[2017-06-23] MEDS: methylPREDNISolone INJ 125 MG/2 ML VIAL (J2930) IV SCH (05:28)
[2017-06-23 06:02] VITALS: BP 144/68
[2017-06-23 06:52] LABS: MEAN CORPUSCULAR HEMOGLOBIN 32.1 pg (27.0-33.0); MEAN CORPUSCULAR HGB CONC 33.6 g/dl (32.0-36.5); MEAN CORPUSCULAR VOLUME 95.5 fl (80.0-96.0); RED CELL DISTRIBUTION WIDTH 13.9 % (11.5-14.5); WHITE BLOOD COUNT 20.2 10^3/uL (4.0-10.0)
[2017-06-23 07:13] LABS: CALCIUM LEVEL 8.9 MG/DL (8.8-10.2); CREATININE FOR GFR 1.37 MG/DL (0.70-1.30); GLOMERULAR FILTRATION RATE 52.6 (>35); POTASSIUM SERUM 3.8 MEQ/L (3.5-5.1)
[2017-06-23] MEDS: ADVAIR HFA 115/21MCG INHALER INH SCH ×2 (07:55→19:38)
[2017-06-23] MEDS: VITAMIN D (CHOLECALCIFEROL) 400 INTERNATIONAL UNITS TAB PO SCH ×2 (08:12→20:42)
[2017-06-23] MEDS: ENOXAPARIN 40 MG/0.4 ML SYRINGE (J1650) SC SCH (08:12)
[2017-06-23] MEDS: AZITHROMYCIN 250 MG TAB PO SCH (08:12)
[2017-06-23] MEDS: ASPIRIN 81 MG ENTERIC TAB PO SCH (08:12)
[2017-06-23] MEDS: OCUVITE 1 TAB PO SCH ×2 (08:12→20:42)
[2017-06-23] MEDS: DOCUSATE SODIUM 100 MG CAP PO SCH (08:12)
[2017-06-23] MEDS ORDERED: SODIUM CHLORIDE 0.9% NASAL GEL 15MG (AYR) PRN (12:45)
[2017-06-23] MEDS: guaiFENesin ER 600 MG TAB PO SCH ×2 (13:40→20:42)
[2017-06-23 14:00] VITALS: BP 160/70
[2017-06-23] MEDS: methylPREDNISolone INJ 40 MG/1 ML VIAL (J2920) IV SCH ×2 (17:26→20:42)
--- NOTE | 2017-06-23 17:30 | IPNPDOC ---
Subjective Date Seen The patient was seen on 06/23/17. Subjective Chief Complaint/HPI The patient is a 87-year-old male admitted with a reason for visit of Copd Exacerbation, Lll Pneumonia. Events since last encounter He states that his breathing is slightly improved, however his fatigue is persistent, he still is only able to take a few steps before becoming significantly tired and winded. Otherwise, he is feeling better today. He states that he is also urinating a little better after receiving a bolus of fluid. He does continue to cough, and he feels as though he is not able to expectorate as much sputum as is necessary General: Reports: Fatigue, Normal Appetite, Denies: Malaise Constitutional: Denies: Chills, Fever, Night Sweats ENT: Denies: Head Aches, Sore Throat Skin: Denies: Rash, Lesions, Bruising Pulmonary: Reports: Dyspnea, Cough Cardiovascular: Denies: Chest Pain, Palpitations Gastrointestinal: Denies: Nausea, Vomiting, Abdominal Pain, Diarrhea, Constipation Neurological: Denies: Weakness Objective Physical Examination General Exam: Positive: Alert, Mild Distress Eye Exam: Positive: PERRLA, Conjunctiva & lids normal, EOMI, Negative: Sclera icteric ENT Exam: Positive: Atraumatic, Mucous membr. moist/pink, Pharynx Normal, Other ENT (he has dentures) Neck Exam: Positive: Supple, Negative: JVD, thyromegaly Chest Exam: Positive: Diminished (unable to auscultate some air movement. Lung poon, this appears to be improved from yesterday) Heart Exam: Positive: Rate Normal, Regular Rhythm, Normal S1, Normal S2, Other (distant heart sounds) Abdomen Exam: Positive: Normal bowel sounds, Soft, Negative: Tenderness, Hepatospenomegaly Extremity Exam: Positive: Normal pulses, Negative: Edema Skin Exam: Positive: Nl turgor and temperature, Negative: Breakdown, Lesion Neuro Exam: Positive: Normal Speech Psych Exam: Positive: Mental status NL, Mood NL, Oriented x 3, Negative: Anxiety Assessment /Plan Problems (1) Left lower lobe pneumonia Status: Acute Problem Text: Continue with empiric antibiotics of Rocephin and azithromycin. Respiratory panel is negative. Sputum culture still pending. Breathing is improving, we will begin to de-escalate his steroids at this time. (2) COPD exacerbation Status: Acute Problem Text: Continue with IV Solu-Medrol, although we will begin to de- escalate him at this time. Oxygen supplementation as needed to maintain his saturations between 88-92%. Continue duonebs and home advair. (3) Prerenal azotemia Status: Acute Problem Text: Renal function did slightly worsening again today. He did receive a 1 L bolus of normal saline yesterday. We will perform a bladder scan, and if it is greater than 300 mL we'll perform a straight cath and recheck his labs again tomorrow. If his bladder scans less than 300, then we may consider putting him on fluids (4) Diastolic congestive heart failure Status: Chronic (5) Chronic respiratory failure with hypoxia Status: Chronic Problem Text: This is likely contributing to a persistently elevated lactic acid; uses 2L O2 chronically (6) Chronic steroid use Status: Chronic (7) Idiopathic chronic hypotension Status: Chronic Problem Text: Pressures are improving everyday without antihypertensives. Continue to monitor (8) Benign prostatic hyperplasia Status: Chronic Problem Text: continue home flomax (9) Hypothyroid Status: Chronic Problem Text: continue home synthroid Plan/VTE VTE Prophylaxis Ordered?: Yes (Lovenox) VS, I&O, 24H, Fishbone Vital Signs/I&O Vital Signs Date Time Temp Pulse Resp B/P (MAP) Pulse Ox O2 Delivery O2 Flow Rate FiO2 06/23/17 14:00 98.9 97 22 160/70 (100) 98 Nasal Cannula 2.0 I&O- Last 24 Hours up to 6 AM 06/24/17 06:00 Intake Total 550 ml Output Total 700 ml Balance -150 ml Laboratory Data 24H LABS Laboratory Tests 2 06/23/17 06:33: Nucleated Red Blood Cells % (auto) 0.0, Anion Gap 11, Glomerular Filtration Rate 52.6, Blood Urea Nitrogen 20H, Creatinine 1.37H, Sodium Level 139, Potassium Level 3.8, Chloride Level 101, Carbon Dioxide Level 27, Calcium Level 8.9, Magnesium Level 2.0 CBC/BMP Laboratory Tests 06/23/17 06:33 Red Blood Count 4.46, Mean Corpuscular Volume 95.5, Mean Corpuscular Hemoglobin 32.1, Mean Corpuscular Hemoglobin Concent 33.6, Red Cell Distribution Width 13.9 , Calcium Level 8.9 Microbiology Microbiology 06/21/17 Blood Culture - Preliminary, Resulted No Growth after 48 hours. All Specime... 06/21/17 Blood Culture - Preliminary, Resulted No Growth after 48 hours. All Specime... 06/23/17 Respiratory Virus Panel (PCR) ([facility]) - Final, Complete GME ATTESTATION GME ATTESTATION My preceptor for this patient encounter was physically present in the building during the encounter and was fully available. As needed, all aspects of the patient interview, examination, medical decision making process, and medical care plan development were reviewed and approved by the preceptor. Preceptor is aware and concurs with the plan as stated in the body of this note and will attest to such by his/her cosignature. ATTENDING NOTE I have seen and examined the above patient and agree with the above documentation. KARON GOSS DO Jun 23, 2017 17:30 ROSA ISELA GALLO Jun 23, 2017 18:15
[2017-06-23] MEDS: NS 1,000 ML IV SCH (17:42)
[2017-06-23] MEDS: cefTRIAXone SOD 1 GM in D5W 50 ML IV SCH (17:45)
[2017-06-23] MEDS: SIMVASTATIN 20 MG TAB PO SCH (20:42)
[2017-06-23] MEDS: TAMSULOSIN 0.4 MG CAP PO SCH (20:42)
[2017-06-23] MEDS: SENOKOT S TAB PO SCH (20:42)
[2017-06-23 23:37] VITALS: BP 164/77
[2017-06-24] MEDS: IPRATROPIUM 0.5MG/ALBUTEROL 2.5MG INH SOL UD 3ML (DUONEB)(J7620) NEB SCH ×6 (04:00→23:30)
[2017-06-24] MEDS: SLF 3 ML SYR IV SCH ×3 (05:46→21:04)
[2017-06-24] MEDS: methylPREDNISolone INJ 40 MG/1 ML VIAL (J2920) IV SCH ×2 (05:46→13:28)
[2017-06-24] MEDS: LEVOTHYROXINE 75MCG TABLET (0.075MG) PO SCH (05:46)
[2017-06-24 06:36] VITALS: BP 156/79
[2017-06-24 06:42] LABS: MEAN CORPUSCULAR HEMOGLOBIN 32.1 pg (27.0-33.0); MEAN CORPUSCULAR HGB CONC 33.7 g/dl (32.0-36.5); MEAN CORPUSCULAR VOLUME 95.3 fl (80.0-96.0); WHITE BLOOD COUNT 15.7 10^3/uL (4.0-10.0)
[2017-06-24 07:02] LABS: ANION GAP 5 MEQ/L (8-16); BLOOD UREA NITROGEN 22 MG/DL (7-18); CARBON DIOXIDE LEVEL 32 MEQ/L (21-32); CHLORIDE LEVEL 104 MEQ/L (98-107); CREATININE FOR GFR 1.03 MG/DL (0.70-1.30); GLOMERULAR FILTRATION RATE > 60.0 (>35); GLUCOSE, FASTING 117 MG/DL (83-110); SODIUM LEVEL 141 MEQ/L (136-145)
[2017-06-24] MEDS: ADVAIR HFA 115/21MCG INHALER INH SCH ×2 (07:27→20:34)
[2017-06-24] MEDS: NS 1,000 ML IV SCH (08:43)
[2017-06-24] MEDS: ASPIRIN 81 MG ENTERIC TAB PO SCH (08:44)
[2017-06-24] MEDS: guaiFENesin ER 600 MG TAB PO SCH ×2 (08:44→21:03)
[2017-06-24] MEDS: SENOKOT S TAB PO SCH ×2 (08:44→21:03)
[2017-06-24] MEDS: VITAMIN D (CHOLECALCIFEROL) 400 INTERNATIONAL UNITS TAB PO SCH ×2 (08:44→21:03)
[2017-06-24] MEDS: AZITHROMYCIN 250 MG TAB PO SCH (08:44)
[2017-06-24] MEDS: OCUVITE 1 TAB PO SCH ×2 (08:44→21:03)
[2017-06-24] MEDS: ENOXAPARIN 40 MG/0.4 ML SYRINGE (J1650) SC SCH (08:44)
[2017-06-24 14:00] VITALS: BP 136/80
[2017-06-24] MEDS: cefTRIAXone SOD 1 GM in D5W 50 ML IV SCH (17:44)
--- NOTE | 2017-06-24 18:28 | IPNPDOC ---
Subjective Date Seen The patient was seen on 06/24/17. Subjective Chief Complaint/HPI The patient is a 87-year-old male admitted with a reason for visit of Copd Exacerbation, Lll Pneumonia. Events since last encounter Mr. Bonilla is feeling slightly better today, although he does continue to be significantly fatigued and short of breath. He does state that he is able to get out of bed and get onto the commode without much trouble at this time which is an improvement from yesterday, although he does not believe he will be able to take very many steps beyond this. He is accompanied in the room by his son. General: Reports: Normal Appetite, Denies: Fatigue, Malaise Constitutional: Denies: Chills, Fever, Night Sweats ENT: Denies: Head Aches, Sore Throat Skin: Denies: Rash, Lesions, Bruising Pulmonary: Reports: Dyspnea, Cough, Denies: Pleuritic Chest Pain Cardiovascular: Denies: Chest Pain, Palpitations, Orthopnea, Paroxysmal Noc. Dyspnea, Edema Gastrointestinal: Denies: Nausea, Vomiting, Abdominal Pain, Diarrhea, Constipation Neurological: Denies: Weakness Objective Physical Examination General Exam: Positive: Alert, Cooperative, Mild Distress Eye Exam: Positive: PERRLA, Conjunctiva & lids normal, EOMI, Negative: Sclera icteric ENT Exam: Positive: Atraumatic, Mucous membr. moist/pink, Pharynx Normal, Other ENT (he has dentures) Neck Exam: Negative: JVD Chest Exam: Positive: Diminished (throughout, superior lung poon and better air movement than the inferior) Heart Exam: Positive: Rate Normal, Regular Rhythm, Other (distant heart sounds) Abdomen Exam: Positive: Normal bowel sounds, Soft, Negative: Tenderness, Hepatospenomegaly Extremity Exam: Positive: Normal pulses, Negative: Edema Skin Exam: Positive: Nl turgor and temperature, Negative: Breakdown, Lesion Neuro Exam: Positive: Normal Speech Psych Exam: Positive: Mental status NL, Mood NL, Negative: Anxiety Assessment /Plan Problems (1) Left lower lobe pneumonia Status: Acute Problem Text: Empiric antibiotics of Rocephin and azithromycin. Respiratory panel is negative. Sputum culture still pending. We will de-escalate his steroids once again today. We will also ask physical therapy to evaluate and treat him today as well. (2) COPD exacerbation Status: Acute Problem Text: Oxygen supplementation as needed to maintain his saturations between 88-92%. Continue duonebs and home advair. Weaning steroids. (3) Prerenal azotemia Status: Acute Problem Text: His bladder scan did not show retention, therefore he was started on IV fluid rehydration last night, and his kidney function is significantly improved, and the patient admits that he is urinating much better now as well. I do believe that he still needs additional fluid rehydration, although I will set the rate quite low such that we will not fluid overload him. (4) Diastolic congestive heart failure Status: Chronic (5) Chronic respiratory failure with hypoxia Status: Chronic Problem Text: This is likely contributing to a persistently elevated lactic acid; uses 2L O2 chronically and chronic prednisone (6) Chronic steroid use Status: Chronic Problem Text: Baseline home dose of steroids is 20 mg prednisone by mouth daily (7) Idiopathic chronic hypotension Status: Chronic Problem Text: Pressures are improving everyday without antihypertensives. Continue to monitor (8) Benign prostatic hyperplasia Status: Chronic Problem Text: continue home flomax (9) Hypothyroid Status: Chronic Problem Text: continue home synthroid Plan/VTE VTE Prophylaxis Ordered?: Yes (Lovenox) VS, I&O, 24H, Fishbone Vital Signs/I&O Vital Signs Date Time Temp Pulse Resp B/P (MAP) Pulse Ox O2 Delivery O2 Flow Rate FiO2 06/24/17 14:00 97.6 105 20 136/80 (98) 98 Nasal Cannula 2.0 I&O- Last 24 Hours up to 6 AM 06/25/17 06:00 Intake Total 720 ml Output Total 750 ml Balance -30 ml Laboratory Data 24H LABS Laboratory Tests 2 06/24/17 06:22: Nucleated Red Blood Cells % (auto) 0.0, Anion Gap 5L, Glomerular Filtration Rate > 60.0, Blood Urea Nitrogen 22H, Creatinine 1.03, Sodium Level 141, Potassium Level 4.0, Chloride Level 104, Carbon Dioxide Level 32, Calcium Level 9.0, Magnesium Level 2.0 CBC/BMP Laboratory Tests 06/24/17 06:22 Red Blood Count 4.30, Mean Corpuscular Volume 95.3, Mean Corpuscular Hemoglobin 32.1, Mean Corpuscular Hemoglobin Concent 33.7, Red Cell Distribution Width 14.0 , Calcium Level 9.0 Microbiology Microbiology 06/21/17 Blood Culture - Preliminary, Resulted No Growth after 72 hours. All specime... 06/21/17 Blood Culture - Preliminary, Resulted No Growth after 72 hours. All specime... 06/23/17 Respiratory Virus Panel (PCR) ([facility]) - Final, Complete Attending Note Attending Note I have seen and examined the above patient and agree with the above documentation. KARON GOSS DO Jun 24, 2017 18:28 ROSA ISELA GALLO Jun 25, 2017 15:24
[2017-06-24 20:00] VITALS: BP 130/80
[2017-06-24] MEDS ORDERED: methylPREDNISolone INJ 40 MG/1 ML VIAL (J2920) IV SCH (21:00)
[2017-06-24] MEDS: SIMVASTATIN 20 MG TAB PO SCH (21:03)
[2017-06-24] MEDS: TAMSULOSIN 0.4 MG CAP PO SCH (21:04)
[2017-06-25 02:50] VITALS: BP 150/82
[2017-06-25] MEDS: IPRATROPIUM 0.5MG/ALBUTEROL 2.5MG INH SOL UD 3ML (DUONEB)(J7620) NEB SCH ×2 (03:31→08:42)
[2017-06-25 03:33] LABS: ABG BASE EXCESS 2.7 (-2.0-2.0); ABG HCO3 26.9 MEQ/L (22.0-26.0); ABG PARTIAL PRESSURE CO2 39.8 mmHg (35.0-45.0); ABG PARTIAL PRESSURE O2 88.1 mmHg (75.0-100.0); ABG STANDARD HCO3 26.9 MEQ/L (22.0-26.0); ABG TOTAL CO2 28.1 MEQ/L (23.0-31.0); ABG pH (ARTERIAL) 7.447 UNITS (7.350-7.450)
[2017-06-25 05:43] VITALS: BP 131/63
[2017-06-25] MEDS: SLF 3 ML SYR IV SCH (05:45)
[2017-06-25] MEDS: LEVOTHYROXINE 75MCG TABLET (0.075MG) PO SCH (05:45)
[2017-06-25] MEDS ORDERED: methylPREDNISolone INJ 40 MG/1 ML VIAL (J2920) IV SCH (06:00)
[2017-06-25 06:39] LABS: MEAN CORPUSCULAR HGB CONC 32.8 g/dl (32.0-36.5); MEAN CORPUSCULAR VOLUME 97.3 fl (80.0-96.0); RED CELL DISTRIBUTION WIDTH 13.8 % (11.5-14.5); WHITE BLOOD COUNT 12.3 10^3/uL (4.0-10.0)
[2017-06-25 07:00] LABS: ANION GAP 6 MEQ/L (8-16); BLOOD UREA NITROGEN 24 MG/DL (7-18); CALCIUM LEVEL 9.2 MG/DL (8.8-10.2); CARBON DIOXIDE LEVEL 31 MEQ/L (21-32); CHLORIDE LEVEL 107 MEQ/L (98-107); CREATININE FOR GFR 1.03 MG/DL (0.70-1.30); GLOMERULAR FILTRATION RATE > 60.0 (>35); GLUCOSE, FASTING 85 MG/DL (83-110); MAGNESIUM LEVEL 2.2 MG/DL (1.8-2.4); POTASSIUM SERUM 3.7 MEQ/L (3.5-5.1); SODIUM LEVEL 144 MEQ/L (136-145)
[2017-06-25] MEDS: ADVAIR HFA 115/21MCG INHALER INH SCH (08:42)
[2017-06-25] MEDS: guaiFENesin ER 600 MG TAB PO SCH (09:00)
[2017-06-25 09:05] VITALS: BP 138/80
[2017-06-25] MEDS: OCUVITE 1 TAB PO SCH (09:09)
[2017-06-25] MEDS: ASPIRIN 81 MG ENTERIC TAB PO SCH (09:09)
[2017-06-25] MEDS: SENOKOT S TAB PO SCH (09:10)
[2017-06-25] MEDS: AZITHROMYCIN 250 MG TAB PO SCH (09:10)
[2017-06-25] MEDS: VITAMIN D (CHOLECALCIFEROL) 400 INTERNATIONAL UNITS TAB PO SCH (09:10)
[2017-06-25] MEDS: ENOXAPARIN 40 MG/0.4 ML SYRINGE (J1650) SC SCH (09:11)
[2017-06-25] MEDS ORDERED: PRED20TA PO ×2 (12:11→12:46)
[2017-06-25] MEDS ORDERED: CEFD1CAP8 PO ×2 (12:11→12:46)
[2017-06-25] MEDS ORDERED: AZIT500T2 PO ×2 (12:12→12:46)
[2017-06-25] MEDS ORDERED: MUCI600T31 PO ×2 (12:12→12:46)
--- NOTE | 2017-06-25 15:01 | DS.PDOC ---
Discharge Summary General Date of Admission Jun 21, 2017 at 18:30 Date of Discharge 06/25/2017 Discharge Summary PRIMARY CARE PHYSICIAN: Ozzy Pro M.D. ATTENDING AT TIME OF DISCHARGE: Dr. Paige Jerry DISCHARGE DIAGNOS(E)S: 1. Left lower lobe pneumonia 2. Acute exacerbation of COPD 3. Prerenal azotemia 4. Diastolic congestive heart failure 5. Chronic respiratory failure with hypoxia 6. Chronic steroid use 7. Idiopathic chronic hypotension 8. Benign prostatic hyperplasia 9. Hypothyroidism HPI & HOSPITAL COURSE: Mr. Bonilla is an 87-year-old male who presents emergency department with profound fatigue and shortness of breath. He was unable to even walk a few steps. Imaging in the emergency department did reveal a left lower lobe pneumonia on chest x-ray that was not present on prior, and this was also confirmed with a CT of the chest. He was treated with Rocephin and azithromycin , as well as an increased dose of steroids. Respiratory panel and sputum cultures were negative, as well as blood cultures. During his stay he was noted to have prerenal azotemia from suspected dehydration, therefore he was given normal saline, his BUN and creatinine both improved and returned to normal. On today the day of discharge he was seen and evaluated by physical therapy and found to be safe to go home to his prior level of care. He does appear to be stable for discharge at this time. He is in a good mood this morning, he has no complaints, he feels as though he is back to his usual baseline self, his cough is significantly improved, shortness of breath and wheezing is also significantly improved, and the remainder of his review of systems is negative. PHYSICAL EXAMINATION ON DISCHARGE: GENERAL: Awake, alert, oriented 3. He is accompanied in the room by his daughter. CARDIOVASCULAR EXAMINATION: Regular rate and rhythm, with no rubs, gallops, or murmur. RESPIRATORY EXAMINATION: Diminished throughout, however I can auscultate air movement in all lung poon which is an improvement from prior. He does have minimal end expiratory wheeze. ABDOMINAL EXAMINATION: Soft, nontender, nondistended. Bowel sounds present. EXTREMITIES: No clubbing or edema noted. 2+ pulses in the radial bilaterally. DISPOSITION: Home DISCHARGE INSTRUCTIONS: Follow-up with primary care physician within 7-10 days. Diet as tolerated. Recommend a slow return to normal activities, however he does not have any specific restrictions upon discharge. If symptoms return, or if you experience worsening of your symptoms, please call your doctor or return to the emergency department. DISCHARGE MEDICATIONS: New Medications: Cefdinir 300 mg by mouth twice a day 3 days Azithromycin 500 mg by mouth daily 3 days Prednisone 60 mg 5 days, 40 mg 5 days, then resume usual home dose of 20 mg daily thereafter ITEMS THAT NEED OUTPATIENT FOLLOWUP: No labs or studies are pending at this time. Recommend that he continue taking the antibiotics for the full course, and adhere to the slow steroid taper as prescribed above. My preceptor for this patient encounter was physically present in the building during the encounter and was fully available. As needed, all aspects of the patient interview, examination, medical decision making process, and medical care plan development were reviewed and approved by the preceptor. Preceptor is aware and concurs with the plan as stated in the body of this note and will attest to such by his/her cosignature. Vital Signs/I&Os Vital Signs Date Time Temp Pulse Resp B/P (MAP) Pulse Ox O2 Delivery O2 Flow Rate FiO2 06/25/17 09:05 98.5 88 20 138/80 (99) 97 Nasal Cannula 2.0 I&O- Last 24 Hours up to 6 AM 06/26/17 05:59 Intake Total 200 ml Output Total 500 ml Balance -300 ml Laboratory Data Labs 24H Laboratory Tests 2 06/25/17 03:24: Blood Gas Bicarbonate Standard 26.9H, Arterial Blood pH 7.447, Arterial Blood Partial Pressure CO2 39.8, Arterial Blood Partial Pressure O2 88.1, Arterial Blood Total CO2 28.1, Arterial Blood HCO3 26.9H, Arterial Blood Base Excess 2.7H , Arterial Blood Oxygen Saturation 97.2 06/25/17 05:57: Nucleated Red Blood Cells % (auto) 0.0, Anion Gap 6L, Glomerular Filtration Rate > 60.0, Blood Urea Nitrogen 24H, Creatinine 1.03, Sodium Level 144, Potassium Level 3.7, Chloride Level 107, Carbon Dioxide Level 31, Calcium Level 9.2, Magnesium Level 2.2 CBC/BMP Laboratory Tests 06/25/17 05:57 Red Blood Count 4.13 L, Mean Corpuscular Volume 97.3 H, Mean Corpuscular Hemoglobin 32.0, Mean Corpuscular Hemoglobin Concent 32.8, Red Cell Distribution Width 13.8, Calcium Level 9.2 Microbiology Microbiology 06/21/17 Blood Culture - Preliminary, Resulted No Growth after 72 hours. All specime... 06/21/17 Blood Culture - Preliminary, Resulted No Growth after 72 hours. All specime... 06/23/17 Respiratory Virus Panel (PCR) ([facility]) - Final, Complete Discharge Medications Scheduled (Preservision Areds 2) 1 Cap Cap, 1 CAP PO BID, (Reported) Aspirin (Aspirin 81) 81 Mg Tab, 81 MG PO DAILY, (Reported) Azithromycin (Azithromycin) 500 Mg Tab, 500 MG PO DAILY Cefdinir (Cefdinir) 300 Mg Cap, 300 MG PO BID Cholecalciferol (Vitamin D3) 400 Unit Tab, 400 UNIT PO BID, (Reported) Docusate Sodium (Docusate Sodium) 100 Mg Cap, 100 MG PO BID, (Reported) Furosemide (Furosemide) 40 Mg Tab, 40 MG PO DAILY, (Reported) Guaifenesin (Mucinex) 600 Mg Tab, 600 MG PO BID Levothyroxine Sodium (Synthroid) 75 Mcg Tab, 75 MCG PO DAILY, (Reported) Prednisone (Prednisone) 20 Mg Tab, 20 MG PO DAILY, (Reported) Prednisone (Prednisone) 20 Mg Tab, 20 MG PO ASDIRECTED 60mg for 5 days, 40mg for 5 days, Then resume usual home dose of 20mg/day thereafter. Simvastatin (Simvastatin) 20 Mg Tab, 20 MG PO DAILY, (Reported) Tamsulosin Hydrochloride (Flomax) 0.4 Mg Cap, 0.4 MG PO QHS, (Reported) Scheduled PRN Albuterol Sulfate (Ventolin Hfa) 200 Puff/8 Gm Aers, 2 PUFF INH Q4H PRN for SHORTNESS OF BREATH, (Reported) Albuterol Sulfate (Albuterol Sulfate) 2.5 Mg/0.5 Ml Neb, 2.5 MG INH Q4H PRN for SHORTNESS OF BREATH, (Reported) Dextran/Hydrox.prop.meth.cell (Tears Naturale PF 0.1-0.3 %) 1 Drop/Bottle Soln, 1 DROP OU BID PRN for DRY EYES, (Reported) Ipratropium [place] (Ipratropium [place]) 0.5 Mg/2.5 Ml Soln, 0.5 MG INH Q6H PRN for SHORTNESS OF BREATH, (Reported) Ipratropium [place] (Atrovent Hfa) 200 Puff/12.9 Gm Aers, 2 PUFF INH Q6H PRN for SHORTNESS OF BREATH, (Reported) Senna (Senna Lax) 8.6 Mg Tab, 2 TAB PO BID PRN for CONSTIPATION, (Reported) Miscellaneous Medications (Stiolto Respimat 2.5-2.5 Mcg/Act) 1 Aer Aer, 2 PUFFS INH, (Reported) Allergies Coded Allergies: Ciprofloxacin (Verified Allergy, Severe, SWELLING, 01/13/13) Penicillins (Verified Allergy, swelling/itching, 01/13/13) Levofloxacin (Verified Adverse Reaction, tendon pain, 01/13/13) Attending Note Attending Note I have seen and examined the above patient and agree with the above documentation. Time spent on discharge: >30 min KARON GOSS DO Jun 25, 2017 15:01 PAIGE JERRY Jun 30, 2017 13:59
== END 2017-06-25 12:59 | disposition home or self-care (01) | DRG 190 ==
LOC: M ED 12:37 → M ED INP 18:30 → M MS4PR 21:18
PROVIDERS: ADMIT Internal Medicine; ATTEND Hospitalist
DX: J44.1 Chronic obstructive pulmonary disease with (acute) exacerbation (principal); J18.9 Pneumonia, unspecified organism; J96.11 Chronic respiratory failure with hypoxia; I50.32 Chronic diastolic (congestive) heart failure; I95.0 Idiopathic hypotension; J44.0 Chronic obstructive pulmonary disease with (acute) lower respiratory infection; E03.9 Hypothyroidism, unspecified; R79.89 Other specified abnormal findings of blood chemistry; N40.0 Benign prostatic hyperplasia without lower urinary tract symptoms; Z79.52 Long term (current) use of systemic steroids; Z79.82 Long term (current) use of aspirin; Z79.899 Other long term (current) drug therapy; Z88.1 Allergy status to other antibiotic agents; Z88.0 Allergy status to penicillin; Z99.81 Dependence on supplemental oxygen; Z98.41 Cataract extraction status, right eye; Z98.42 Cataract extraction status, left eye; Z87.891 Personal history of nicotine dependence

== ENCOUNTER → 2018-12-18 | Outpatient (REF) ==
[~2018-12-18] MED LIST changes: -/TAMS4CA; -/TAMS4CA GT; -/TAMS4CA PO; -ACET50TA PO; -ASPI1TAB PO; +ASPI81TA26 PO; +AZIT500T2 PO; +CEFD1CAP8 PO; -DOXY-278 PO; +DOXY-350 PO; +FLOM0.4C39; +FLOM0.4C39 GT; +FLOM0.4C39 PO; -FLOM5CAP PO; +FURO40TA2 PO; +LEVO75TA4 PO; +MAPA500T17 PO; +MUCI600T31 PO; +STIO1AER INH
[2018-12-18 17:36] LABS: BASO % 0.3 % (0.0-1.0); EOS % 0.1 % (0.0-3.0); HEMATOCRIT 43.7 % (42.0-52.0); LYMPH # 0.6 10^3/uL (1.5-4.5); LYMPH % 6.7 % (24.0-44.0); MEAN CORPUSCULAR HEMOGLOBIN 31.6 pg (27.0-33.0); MEAN CORPUSCULAR VOLUME 98.6 fl (80.0-96.0); MONO # 0.5 10^3/uL (0.0-0.8); MONO % 5.3 % (0.0-5.0); NEUTROPHILS # 7.7 10^3/uL (1.8-7.7); NEUTROPHILS % 84.8 % (36.0-66.0); PLATELET COUNT, AUTOMATED 232 10^3/uL (150-450); RED BLOOD COUNT 4.43 10^6/uL (4.30-6.10); WHITE BLOOD COUNT 9.1 10^3/uL (4.0-10.0)
[2018-12-18 17:46] LABS: ALBUMIN 3.1 GM/DL (3.2-5.2); BILIRUBIN,TOTAL 0.5 MG/DL (0.2-1.0); CALCIUM LEVEL 8.3 MG/DL (8.8-10.2); CREATININE FOR GFR 1.48 MG/DL (0.70-1.30); POTASSIUM SERUM 4.1 MEQ/L (3.5-5.1); THYROID STIMULATING HORMONE 1.7 uIU/ML (0.358-3.740); TOTAL PROTEIN 5.8 GM/DL (6.4-8.2)
== END ==
LOC: M LAB REF 16:28
PROVIDERS: ATTEND Nurse Practitioner Family
DX: Z00.00 Encounter for general adult medical examination without abnormal findings (principal)

== ENCOUNTER → 2018-12-26 | Outpatient (REF) ==
[2018-12-26 14:15] LABS: HEMATOCRIT 45.9 % (42.0-52.0); MEAN CORPUSCULAR HEMOGLOBIN 32.2 pg (27.0-33.0); MEAN CORPUSCULAR HGB CONC 32.7 g/dl (32.0-36.5); MEAN CORPUSCULAR VOLUME 98.5 fl (80.0-96.0); PLATELET COUNT, AUTOMATED 247 10^3/uL (150-450); RED BLOOD COUNT 4.66 10^6/uL (4.30-6.10); WHITE BLOOD COUNT 11.5 10^3/uL (4.0-10.0)
[2018-12-26 14:25] LABS: CALCIUM LEVEL 9.5 MG/DL (8.8-10.2); CREATININE FOR GFR 1.86 MG/DL (0.70-1.30); GLOMERULAR FILTRATION RATE 36.9 (>35); POTASSIUM SERUM 4.2 MEQ/L (3.5-5.1)
== END ==
LOC: M LAB REF 14:02
PROVIDERS: ATTEND Nurse Practitioner Family
DX: Z02.89 Encounter for other administrative examinations (principal)